=== PATIENT | female | born 1990 | race Caucasian/White ===

== ENCOUNTER 2018-02-11 15:36 | Observation (INO) ==
[2018-02-11] MEDS ORDERED: Acetaminophen 325 MG TABLET PO PRN (17:13)
[2018-02-11] MEDS ORDERED: Naloxone 0.4 MG/ML INJ IVP PRN (17:13)
--- NOTE | 2018-02-11 17:18 | Urology History & Physical ---
Date of Encounter: 02/12/18 Time of Encounter: 18:42 Assessment and Plan (1) Left ureteral stone Current Visit: Yes Status: Acute 27-year-old woman with a left proximal ureteral stone. She has been admitted for pain control. I recommend proceeding with a left ureteroscopy, laser lithotripsy, and stent placement. She was informed of the risks of the procedure including but not limited to bleeding, infection, injury to other structures, need for further procedures, stent irritation, incomplete fragmentation, ureteral perforation, need for nephrostomy tube, need for open repair, risks unforeseen, and the risk of anesthesia. She is willing to proceed. History of Present Illness Chief complaint: Left flank pain HPI: Ms. Kim is a 27 year old female who is seen in the urology clinic today for left flank pain. She has a known history of nephrolithiasis. She began developing left flank pain yesterday. It was severe and radiated to her left groin. She went to [facility]. A CT scan showed evidence of a left proximal ureteral stone. There was evidence of hydronephrosis. In addition there was a left renal stone. She came to the urology clinic today. She was having nausea and severe flank pain. She was then admitted for further care. She denies any fevers or chills. She has a long-standing history of nephrolithiasis and has previously had ureteroscopic stone extraction by Dr. Brandt. Past Med Surg Social Fam HX - Family History Mother Hx Family Genitourinary Disorders: No Medications and Allergies 3 Allergy/AdvReac Type Severity Reaction Status Date / Time No Known Allergies Allergy Verified 02/11/18 19:24 Review of Systems - Constitutional no chills, no fever(s) - EENT Nose, mouth and throat: no dizziness - Cardiovascular no chest pain - Respiratory no dyspnea - Gastrointestinal no nausea, no vomiting - Genitourinary Genitourinary: flank pain, no hematuria - Musculoskeletal no back pain - Integumentary no erythema, no rash - Neurological no weakness - Psychiatric no suicidal ideation - Hematologic/Lymphatic no easy bleeding - Allergic/Immunologic no wheezing Exam - General physical appearance Present: well developed, well nourished, no distress - Eyes Absent: icteric - ENT Present: normal nares - Neck Present: trachea midline - Respiratory Present: normal respiratory effort - Cardiovascular Cardiovascular exam IM: RRR - Abdomen Abdomen: Present: soft - Integumentary Present: no rash - Neurologic Present: normal coordination - Musculoskeletal Present: normal gait Urology Results - Labs 02/11/18 18:58 02/11/18 18:58 All other labs normal. - Imaging CT scan - abdomen: report reviewed, image reviewed CT scan - pelvis: report reviewed, image reviewed
[2018-02-11 19:16] LABS: Basophils # 0.1 K/mcL (0.0-0.2); Basophils % 0.5 %; Eosinophils # 0.1 K/mcL (0.0-0.6); Eosinophils % 1.3 %; Hematocrit 38.3 % (35.3-44.9); Hemoglobin 12.7 g/dL (11.5-15.4); Immature Granulocytes % 0.4 % (0-4); Lymphocytes # 2.6 K/mcL (0.6-4.6); Lymphocytes % 23.7 %; Mean Corpuscular HGB Conc 33.2 g/dL (31.6-35.5); Mean Corpuscular Hemoglobin 29.1 pg (28.0-33.3); Mean Corpuscular Volume 87.8 fL (83.0-100.0); Mean Platelet Volume 10.2 fL (9.4-12.4); Monocytes # 0.7 K/mcL (0.0-1.3); Monocytes % 6.4 %; Neutrophils # 7.3 K/mcL (1.6-8.9); Platelet Count 195 K/mcL (140-400); Red Blood Count 4.36 M/mcL (3.82-4.97); Red Cell Distribution Width 12.9 % (11.5-14.5); Segmented Neutrophils % 67.7 %
[2018-02-11 19:39] LABS: BUN/Creatinine Ratio 12 (6-26); Blood Urea Nitrogen 10 mg/dL (6-20); Calcium 8.6 mg/dL (8.6-10.3); Carbon Dioxide 22 mEq/L (23-29); Chloride 108 mEq/L (98-107); Glucose 120 mg/dL (70-105); Osmolality,Calculated 286 (280-300); Potassium 3.8 mEq/L (3.5-5.1); Sodium 138 mEq/L (136-145); eGFR For African Americans > 60 (> 60); eGFR For Non-African Americans > 60 (> 60)
[2018-02-11] MEDS: OXYCODONE Oral CONC 10 MG/0.5 ML ORAL.SYG SL PRN (19:44)
[2018-02-11] MEDS: Nicotine 21 MG PATCH.TD24 TD SCH (20:30)
[2018-02-11] MEDS: 0.9 % Sodium Chloride 1,000 ML IVC SCH (22:08)
[2018-02-11] MEDS: Ondansetron 4 MG/2 ML VIAL IVP PRN (22:23)
[2018-02-11] MEDS: *HR* OxyCODONE Immed Rel 5 MG TABLET PO PRN (23:03)
[2018-02-12] MEDS: OXYCODONE Oral CONC 10 MG/0.5 ML ORAL.SYG SL PRN ×3 (01:56→14:14)
[2018-02-12] MEDS: 0.9 % Sodium Chloride 1,000 ML IVC SCH ×3 (05:59→21:06)
[2018-02-12] MEDS: Ondansetron 4 MG/2 ML VIAL IVP PRN (06:00)
[2018-02-12] MEDS: *HR* OxyCODONE Immed Rel 5 MG TABLET PO PRN ×2 (06:00→21:05)
--- NOTE | 2018-02-12 07:04 | Urology Progress Note ---
Date of Encounter: 02/12/18 Time of Encounter: 07:03 - Assessment and Plan (1) Left ureteral stone Current Visit: Yes Status: Acute Assessment and plan: 27 year old woman with a proximal left ureteral stone. Plan for left ureteroscopy, laser lithotripsy, and stent placement. Patient is aware of all risks. She is willing to proceed. Progress Note Narrative: Doing okay today. Still with some flank pain. No fevers overnight. Objective Initial Vital Signs Temp Pulse Resp BP Pulse Ox 97.9 F 81 15 106/72 96 02/11/18 18:36 02/11/18 18:36 02/11/18 18:36 02/11/18 18:36 02/11/18 18:36 - General physical appearance Present: well developed, well nourished, no distress - Respiratory Present: normal respiratory effort - Abdomen Present: soft - Labs 02/11/18 18:58 02/11/18 18:58 Diabetes panel 02/11/18 Range/Units 18:58 Sodium 138 (136-145) mEq/L Potassium 3.8 (3.5-5.1) mEq/L Chloride 108 H (98-107) mEq/L Carbon Dioxide 22 L (23-29) mEq/L BUN 10 (6-20) mg/dL Creatinine 0.82 (0.60-1.20) mg/dL Glucose 120 H (70-105) mg/dL Calcium 8.6 (8.6-10.3) mg/dL Calcium panel 02/11/18 Range/Units 18:58 Calcium 8.6 (8.6-10.3) mg/dL Pituitary panel 02/11/18 Range/Units 18:58 Sodium 138 (136-145) mEq/L Potassium 3.8 (3.5-5.1) mEq/L Chloride 108 H (98-107) mEq/L Carbon Dioxide 22 L (23-29) mEq/L BUN 10 (6-20) mg/dL Creatinine 0.82 (0.60-1.20) mg/dL Glucose 120 H (70-105) mg/dL Calcium 8.6 (8.6-10.3) mg/dL Adrenal panel 02/11/18 Range/Units 18:58 Sodium 138 (136-145) mEq/L Potassium 3.8 (3.5-5.1) mEq/L Chloride 108 H (98-107) mEq/L Carbon Dioxide 22 L (23-29) mEq/L BUN 10 (6-20) mg/dL Creatinine 0.82 (0.60-1.20) mg/dL Glucose 120 H (70-105) mg/dL Calcium 8.6 (8.6-10.3) mg/dL Consult Discharge Plan - Plan Referrals: Roma Posada CNP [Primary Care Provider] - Charlie Leonardo MD [Partnered Physician] -
[2018-02-12] MEDS: Nicotine 21 MG PATCH.TD24 TD SCH (09:31)
--- NOTE | 2018-02-12 16:10 | Anesthesia Evaluation PreOp ---
Date of Encounter: 02/12/18 Time of Encounter: 16:08 - Past History Planned Operation: Left Ureteroscopic Stone Extraction Cardiac History: Denies any Significant Hx Pulmonary History: Smoker (8 years) FURNACE COMBINATION ANALYST History: Denies Any Significant HX Other Medical History: Renal (kidney stones), GERD, Other (obesity BMI=45.5, anxiety/depression) Anesthesia History: No Prior Anesthetic Complications, Past Anesthesia Test: Negative (02/11/2018) Alcohol Use: none Drug use: none Medications and Allergies FLUoxetine HCl [Fluoxetine HCl] 40 mg PO DAILY 02/12/18 [History] Ibuprofen [Ibuprofen] 800 mg PO Q8H PRN 02/12/18 [History] Norgestimate-Ethinyl Estradiol [Estarylla 0.25-0.035 mg Tablet] 1 tab PO DAILY 02/12/18 [History] Omeprazole [PriLOSEC] 20 mg PO DAILY 02/12/18 [History] Tamsulosin [Flomax] 0.4 mg PO DAILY 02/12/18 [History] 3 Allergy/AdvReac Type Severity Reaction Status Date / Time No Known Allergies Allergy Verified 02/12/18 07:48 - Meds/Allergy Pre-op Review Medications Reviewed: Yes Allergies Reviewed: Yes Beta Blockers on Current Med List: No Anesthesia Results - Labs 02/11/18 18:58 02/11/18 18:58 Anesthesia Exam Vital Signs/O2 Sat/Glucose, Most Recent Temp Pulse Resp BP Pulse Ox 98.9 F 62 14 114/78 100 02/12/18 14:47 02/12/18 14:47 02/12/18 14:47 02/12/18 14:47 02/12/18 14:47 Blood Glucose* 96 Height: 5'2''/1.57m Weight: 248 lbs/112.76 kg NPO (# of Hours): 8 Pain Scale: 7 (left flank) Pain Scale Used: Numeric (1 - 10) - HEENT Pupil (Motor): EOMI Mallampati: III Teeth: Normal Oral Opening: Greater than 3 - FURNACE COMBINATION ANALYST LOC: Oriented FURNACE COMBINATION ANALYST Motor: Normal RUE, Normal LUE, Normal RLE, Normal LLE, Normal Face FURNACE COMBINATION ANALYST Sensory: Normal: RUE, LUE, RLE, LLE, Face - Cardiac Rhythm: Regular Murmur: None - Pulmonary Breath Sounds: bilateral Clear Respiratory Effort: Symmetrical Anesthesia Assess/Plan ASA Score: 3 Modified [place] Scale for Level of Consciousness: Cooperative, oriented, and tranquil Anesthetic Plan: General Monitoring Plan: Standard Monitors Recovery Plan: PACU
[2018-02-12 16:15] LABS: Bilirubin,Urine Negative (Negative); Blood,Urine Trace (Negative); Clarity,Urine Clear (Clear); Color,Urine Yellow (Yellow); Glucose,Urine (UA) Normal (Normal); Ketones,Urine Negative (Negative); Leukocyte Esterase,Urine Trace (Negative); Nitrite,Urine Negative (Negative); Protein,Urine Negative (Neg-Trace); Specific Gravity,Urine 1.012 (1.010-1.025); Urobilinogen,Urine Normal (Normal)
[2018-02-12 16:18] LABS: Bacteria,Urine None Seen per hpf (None-Few); Hyaline Casts,Urine None Seen per lpf (None-Few); RBC,Urine 0-3 per hpf (0-3); Squamous Epithelial Cell,Urine Many per lpf (None-Few); WBC,Urine 0-3 per hpf (0-3)
[2018-02-12] MEDS ORDERED: *HR* Propofol 200 MG/20 ML VIAL IVP ONE (16:22)
[2018-02-12] MEDS ORDERED: *HR* Midazolam HCl 2 MG/2 ML VIAL ONE (16:22)
[2018-02-12] MEDS ORDERED: *HR* FentaNYL (PF) 100 MCG/2 ML VIAL ONE (16:22)
[2018-02-12] MEDS ORDERED: Lidocaine -MPF 2% 2 ML VIAL ONE (16:22)
[2018-02-12] MEDS ORDERED: Dexamethasone 4 MG/ML VIAL ONE (16:22)
[2018-02-12] MEDS ORDERED: *HR* Succinylcholine 200 MG/10 ML VIAL IVP ONE (16:22)
[2018-02-12] MEDS ORDERED: Lidocaine -MPF 4% 5 ML AMPUL ONE (16:22)
[2018-02-12] MEDS ORDERED: Ondansetron 4 MG/2 ML VIAL ONE (16:22)
[2018-02-12] MEDS ORDERED: ceFAZolin 2,000 MG in 0.9 % Sodium Chloride 100 ML IVPB ONE ×2 (16:32→19:36)
[2018-02-12] MEDS ORDERED: *HR* HYDROmorphone 2 MG TABLET PO PRN (16:51)
[2018-02-12] MEDS ORDERED: Naloxone 0.4 MG/ML INJ IVP PRN (16:51)
[2018-02-12] MEDS ORDERED: *HR* Promethazine 25 MG/ML VIAL IVP PRN (16:51)
[2018-02-12] MEDS ORDERED: *HR* Meperidine 25 MG/ML SYRINGE IVP PRN (16:51)
[2018-02-12] MEDS ORDERED: Ondansetron 4 MG/2 ML VIAL IVP ONE (16:51)
[2018-02-12] MEDS ORDERED: Albuterol 2.5 MG/3 ML NEBULIZER IH ONE (16:51)
[2018-02-12] MEDS ORDERED: Acetaminophen IV 1,000 MG/100 ML INFUS..BTL IVPB ONE (16:51)
[2018-02-12] MEDS ORDERED: *HR* OxyCODONE Immed Rel 5 MG TABLET PO PRN (16:51)
[2018-02-12] MEDS ORDERED: 0.9 % Sodium Chloride 500 ML IVC SCH (17:00)
[2018-02-12] MEDS ORDERED: *HR* PHENYLEPHRINE 1,000 MCG/10 ML SYRINGE IVP ONE (18:09)
--- NOTE | 2018-02-12 18:14 | Operative Note ---
Date of procedure: 02/12/18 Pre-op diagnosis: Left ureteral stone Post-op diagnosis: same Procedure: Left ureteroscopy, laser lithotripsy, basket stone extraction, and stent placement Implants: 6-Barbadian by 24 cm double-J stent Complications: None Anesthesia: RUBI Surgeon: Charlie Leonardo Was there an restaurant assistant manager present: No Estimated blood loss (cc): 1 Specimen: left renal stone Condition: stable Disposition: PACU Procedure in Detail: Indications: Bere is a 27-year-old female who has a history of nephrolithiasis. A CT showed a left proximal ureteral stone. She elected to undergo a left ureteroscopy, laser lithotripsy, and stent placement. She was aware of the risks of the procedure including but not limited to bleeding, infection, injury to other structures, need for further procedures, stent irritation, need for nephrostomy tube, need for open repair, risks otherwise unforeseen, and the risk of anesthesia. She is willing to proceed. Procedure in Detail: After informed consent was obtained the patient was brought back to the operating room and placed in supine position. A time out was performed. General anesthesia was administered and an LMA was placed. She was then placed in the lithotomy position. She was prepped and draped in the usual sterile fashion. Cystoscopy was performed. The anterior urethra was normal. There was no evidence of bladder tumors. The ureteral orifices were in the normal orthotopic position. There was no duplication of the ureteral orifices. The sensor wire was placed in the left ureteral orifice. The wire was then brought up into the kidney under fluoroscopic guidance. The 8/10-Barbadian dilator was then placed. The zip wire was placed. The dilator was removed. I then passed the 11/13 Barbadian ureteral access sheath. The flexible ureteroscope was then advanced into the kidney. The renal pelvis was significantly distended. I aspirated approximately 100 mL out of the kidney. The fluid was fairly bloody. A stone was seen in the renal pelvis. This was moved into the upper pole calyx using the basket. The 200 micron laser fiber was introduced. The stone was fractionated into small pieces. Visualization was becoming difficult secondary to bleeding. I was able to basket the larger stone debris. The ureteroscope was then removed and the pullout ureteroscopy showed a small stone in the ureter which was basket extracted. A 6 Barbadian by 24cm JJ stent was then placed. A good curl was seen in the kidney and the bladder. The dangle string was left intact and will be used through removed the stent at a later date. The patient was then awakened from general anesthesia and brought to recovery room in good condition. All sponge, needle, and instrument counts were correct.
[2018-02-12] MEDS ORDERED: Acetaminophen 325 MG TABLET PO PRN (19:36)
[2018-02-12] MEDS ORDERED: OXYCODONE Oral CONC 10 MG/0.5 ML ORAL.SYG SL PRN (19:36)
[2018-02-12] MEDS ORDERED: Ondansetron 4 MG/2 ML VIAL IVP PRN (19:36)
--- NOTE | 2018-02-12 19:39 | Anesthesia Evaluation Post Op ---
Date of Encounter: 02/12/18 Time of Encounter: 19:39 - Vital Signs Vital Signs: Vital Signs/O2 Sat, Most Current Temp Pulse Resp BP Pulse Ox 98.8 F 64 20 98/70 94 02/12/18 19:14 02/12/18 19:24 02/12/18 19:24 02/12/18 19:24 02/12/18 19:24 - Lungs Lungs: Clear Ascult./Percussion - Airway Airway: Non-obstructed - Cardiovascular Regular Rate - Mental Status Mental Status: Alert & Oriented, Answers Appropriately - Pain Pain Scale: 6 Pain Scale used: Numeric (1 - 10) - Nausea Vomiting Nausea Vomiting: Not Present - Hydration Hydration: Ice chips - Discharge PostOp Status: Transfer Patient to floor
[2018-02-13 03:12] VITALS: BP 110/71
[2018-02-13] MEDS: 0.9 % Sodium Chloride 1,000 ML IVC SCH (05:21)
[2018-02-13] MEDS: *HR* OxyCODONE Immed Rel 5 MG TABLET PO PRN (06:06)
--- NOTE | 2018-02-13 06:55 | Discharge Summary ---
Orders not resulted at time of discharge: Pending orders 02/12/18 17:05 XR KUB [XR] Routine Date of Encounter: 02/13/18 Time of Encounter: 06:54 - Discharge Diagnosis (1) Left ureteral stone Priority: Primary Status: Acute - Hospital Course Hospital course: Ms. Kim is a 27 year old female who presented with left flank pain. She was admitted on 02/11/2018 with a left proximal ureteral stone. On 02/11/2018 she underwent a left ureteroscopy, laser lithotripsy, basket stone extraction, and stent placement. On postoperative day #1 she was doing well. She was discharged home that day. - Time Spent with Patient Total time spent providing and/or coordinating discharge services: Less than 30 minutes Labs on day of discharge: Labs from last 24 hours 02/12/18 02/12/18 15:35 05:29 POC Glucose 119 H Urine Color Yellow Urine Clarity Clear Urine pH 6.0 Ur Specific [place] 1.012 Urine Protein Negative Urine Glucose (UA) Normal Urine Ketones Negative Urine Blood Trace H Urine Nitrite Negative Urine Bilirubin Negative Urine Urobilinogen Normal Ur Leukocyte Esterase Trace H Urine Microscopic RBC 0-3 Urine Microscopic WBC 0-3 Ur Squamous Epith Cells Many H Urine Bacteria None Seen Hyaline Casts None Seen - Impressions ITS Impressions Fluoroscopy 02/12/18 17:05 IMPRESSION: Intraprocedural fluoroscopic spot images as above. See separate procedure report for more information. D/ / Jez Welch MD / Jez Welch MD Interpreting Provider: Jez Welch MD - Discharge Medications Prescriptions: Docusate [Colace] 100 mg PO BID #60 capsule Oxycodone HCl/Acetaminophen [Percocet 5-325 mg Tablet] 1 each PO Q6H PRN 4 Days #15 tablet PRN Reason: Pain Phenazopyridine HCl [Pyridium] 200 mg PO TIDAC #12 tab Home Medications: FLUoxetine HCl [Fluoxetine HCl] 40 mg PO DAILY 02/12/18 [History] Ibuprofen 800 mg PO Q8H PRN 02/12/18 [History] Norgestimate-Ethinyl Estradiol [Estarylla 0.25-0.035 mg Tablet] 1 tab PO DAILY 02/12/18 [History] Omeprazole [PriLOSEC] 20 mg PO DAILY 02/12/18 [History] Tamsulosin [Flomax] 0.4 mg PO DAILY 02/12/18 [History] Docusate [Colace] 100 mg PO BID #60 capsule 02/13/18 [Rx] Oxycodone HCl/Acetaminophen [Percocet 5-325 mg Tablet] 1 each PO Q6H PRN 4 Days #15 tablet 02/13/18 [Rx] Phenazopyridine HCl [Pyridium] 200 mg PO TIDAC #12 tab 02/13/18 [Rx] Allergies/Adverse Reactions: 3 Allergy/AdvReac Type Severity Reaction Status Date / Time No Known Allergies Allergy Verified 02/12/18 07:48 Date of admission: 02/11/18 18:14 Primary care physician: Zita Alcala Discharging clinician: Charlie Leonardo Anticipated date of discharge: 02/13/18 Exam Initial Vital Signs Temp Pulse Resp BP Pulse Ox 97.9 F 81 15 106/72 96 02/11/18 18:36 02/11/18 18:36 02/11/18 18:36 02/11/18 18:36 02/11/18 18:36 - General physical appearance Present: well developed, well nourished, no distress - Eyes Absent: icteric - ENT Present: normal nares - Neck Present: trachea midline - Respiratory Present: normal respiratory effort - Cardiovascular Cardiovascular exam IM: RRR - Abdomen Abdomen: Present: soft - Integumentary Present: no rash - Neurologic Present: normal coordination - Patient Status Disposition: Home, Self-Care Condition: Good Functional capacity at discharge: independent ambulation Overall status at discharge: patient is progressing back to baseline - Discharge Instructions Follow Up With: Roma Posada, MARIAA [Primary Care Provider] - Charlie Leonardo MD [Partnered Physician] - (Patient can see me in [place] next week for string, stent removal.) Additional Instructions: 1. The patient can follow up with me in [place] on 02/18/2018 for string stent removal 2. She should expect to feel flank pain with voiding. 3. The patient should call for any fevers, chills, nausea, emesis, or uncontrolled pain. 4. Please provide a work excuse if necessary for up to 1 week off. - Diet and Activity Activity: increase activity as tolerated Diet: advance to your usual diet - VTE Documentation of Mechanical Device: Intermittent pneumatic compression device
[2018-02-13] MEDS ORDERED: Nicotine 21 MG PATCH.TD24 TD SCH (09:00)
[2018-02-13] MEDS ORDERED: NORGESTIMATE ETHINYL ESTRADIOL PO SCH (09:00)
[2018-02-13] MEDS ORDERED: FLUoxetine 20 MG CAPSULE PO SCH (09:00)
== END 2018-02-13 10:04 | disposition home or self-care (01) ==
LOC: 3ANU 18:14 → INTOOBSV 18:14
PROVIDERS: ADMIT Urology; ATTEND Urology

== ENCOUNTER 2018-09-10 17:28 | Inpatient (IN) ==
[2018-09-10] MEDS ORDERED: Acetaminophen IV 1,000 MG/100 ML INFUS..BTL IVPB ONE (17:52)
[2018-09-10] MEDS ORDERED: Hyoscyamine 0.5 MG/ML MLS IVP ONE (17:52)
[2018-09-10] MEDS ORDERED: *HR* HYDROmorphone (PF) 1 MG/ML SYRINGE IVP ONE (17:52)
[2018-09-10] MEDS ORDERED: 0.9 % Sodium Chloride 1,000 ML IVC ONE (17:52)
--- NOTE | 2018-09-10 17:55 | Emergency Department Note ---
Disposition Clinical Impression: Left ureteral stone UTI (urinary tract infection) Qualifiers: Urinary tract infection type: acute cystitis Hematuria presence: with hematuria Qualified Code(s): N30.01 - Acute cystitis with hematuria Disposition: Admitted As Inpatient Condition: Fair Time of Disposition: 18:39 Abdominal Pain HPI - General Chief Complaint: ED Abdominal Pain Stated Complaint: "kidney stone" Time Seen by Provider: 09/10/18 17:40 Source: patient Mode of arrival: ambulatory Limitations: no limitations Nursing Notes Reviewed: Yes Vital Signs Reviewed: Yes - History of Present Illness HPI Narrative: Patient presents to the ED if the chief complaint of left-sided kidney stone. Has had multiple kidney stones in the past, all requiring stenting or removal. She was seen at outside hospital last night and told that the kidney stone was on her left and was just about to drop into the bladder, but did have the potential to get stuck. They placed her on 2 mg of oral Dilaudid pills and she states that that has not been touching her pain. She also complains of a sub jective fever at home today, but is afebrile here. She does have chills and nausea and vomiting. No other abdominal pain. No chest pain or shortness of breath. She does have some dysuria, frequency and hesitancy. No rashes. Pain Scale: 8 - Related Data Home Medications Medication Instructions Recorded Confirmed FLUoxetine HCl [Fluoxetine HCl] 40 mg PO DAILY 02/12/18 09/10/18 Omeprazole [PriLOSEC] 20 mg PO DAILY 02/12/18 09/10/18 Allergies Allergy/AdvReac Type Severity Reaction Status Date / Time No Known Allergies Allergy Verified 02/12/18 07:48 Review of Systems: As reviewed in the HPI. All other systems reviewed are negative or normal. Abdominal Pain PMH - Past Medical History Medical history: Reports: kidney stones Female Surgical History: Reports: cholecystectomy Psychiatric history: Reports: depression - Social History Smoking status: Current every day smoker Alcohol use: Reports: none Drug use: Reports: none Physical Exam CONSTITUTIONAL: [ill appearing, alert and in no acute distress] EYES: [EOMI, clear conjunctiva, PERRLA] HENT: [Normocephalic, atraumatic, moist mucus membranes, normal oropharynx] NECK: [normal inspection, full ROM, trachea midline, no obvious swelling] PULMONARY: [normal lung sounds bilaterally, normal chest rise and fall, no respiratory distress or stridor, no wheezes, no rales, no rhonchi CARDIOVASCULAR: [regular rate, regular rhythm, normal heart sounds, no murmurs, distal extremities are warm and well perfused] GASTROINSTESTINAL: [soft, LLQ tender, non-rigid, non-distended, no guarding, no rebound, normal bowel sounds] GENITOURINARY/RECTAL: [deferred] NEUROLOGIC: [Alert, oriented x3, normal speech, moves all extremities, L Flank pain] EXTREMITIES: [Normal inspection, full ROM, no tenderness, no pedal edema, normal capillary refill] MUSCULOSKELETAL: [no gross deformities, atraumatic] SKIN: [No cyanosis, no diaphoresis, normal color, warm, no rash] PSYCHIATRIC: [normal mood and affect] - General Limitations: no limitations General appearance: alert, in no apparent distress Course Course Narrative: Patient likely with blocked kidney stone. We will give her meds and reevaluate. Attempting to get imaging from outside hospital. Otherwise, we will reimage We did get CT imaging from the outside hospital. There is a 4.5 mm left UPJ stone. Patient does have significant pain. I consult with urology, Dr. Leonardo. Amendable to admission for pain control and reevaluation in the morning. Patient and family are agreeable with plan. We will recheck labs and I will give her dose of Rocephin because the outside records did show leukocyte esterase and 25-50 white blood cells, but was nitrite negative. However, she does have dysuria and urinary complaints Vital Signs Temperature 99.6 F 09/10/18 17:37 Pulse Rate 117 09/10/18 17:37 Respiratory Rate 20 09/10/18 17:37 Blood Pressure 125/79 09/10/18 17:37 O2 Sat by Pulse Oximetry 97 09/10/18 17:37 Temperature 99.6 F 09/10/18 17:37 Pulse Rate 117 09/10/18 17:37 Respiratory Rate 20 09/10/18 17:37 Blood Pressure 125/79 09/10/18 17:37 O2 Sat by Pulse Oximetry 97 09/10/18 17:37 Oxygen Delivery Oxygen Delivery Room Air Abdominal Pain - Lab Data Result diagrams: 09/12/18 08:06 09/12/18 09:21 Lab Results 09/10/18 09/10/18 Range/Units 17:35 17:35 Urine Color Yellow (Yellow) Urine Clarity Cloudy A (Clear) Urine pH 6.0 (5.0-8.0) pH Units Ur Specific [place] 1.019 (1.010-1.025) Urine Protein 100 H (Neg-Trace) mg/dL Urine Glucose (UA) Normal (Normal) mg/dL Urine Ketones Negative (Negative) mg/dL Urine Blood Large H (Negative) Urine Nitrite Negative (Negative) Urine Bilirubin Negative (Negative) Urine Urobilinogen Normal (Normal) mg/dL Ur Leukocyte Esterase Moderate H (Negative) Urine Microscopic RBC 50-100 H (0-3) per hpf Urine Microscopic WBC TNTC H (0-3) per hpf Ur Squamous Epith Cells Many H (None-Few) per lpf Urine Bacteria Moderate H (None-Few) per hpf Hyaline Casts Few (None-Few) per lpf Ur Culture Indicated? NO. A (NO) Urine Test Negative (Negative)
[2018-09-10 18:04] LABS: Bilirubin,Urine Negative (Negative); Blood,Urine Large (Negative); Clarity,Urine Cloudy (Clear); Color,Urine Yellow (Yellow); Glucose,Urine (UA) Normal (Normal); Ketones,Urine Negative (Negative); Leukocyte Esterase,Urine Moderate (Negative); Nitrite,Urine Negative (Negative); Protein,Urine 100 mg/dL (Neg-Trace); Specific Gravity,Urine 1.019 (1.010-1.025); Urobilinogen,Urine Normal (Normal)
[2018-09-10 18:08] LABS: Bacteria,Urine Moderate per hpf (None-Few); Hyaline Casts,Urine Few per lpf (None-Few); RBC,Urine 50-100 per hpf (0-3); Squamous Epithelial Cell,Urine Many per lpf (None-Few); WBC,Urine TNTC per hpf (0-3)
[2018-09-10] MEDS ORDERED: Ondansetron 4 MG/2 ML VIAL IVP ONE (18:10)
--- NOTE | 2018-09-10 18:30 | Emergency Department Note ---
Disposition Clinical Impression: Left ureteral stone, UTI (urinary tract infection) Disposition: Admitted As Inpatient Condition: Fair General Adult HPI - General Chief complaint: ED Abdominal Pain Stated complaint: "kidney stone" Time Seen by Provider: 09/10/18 17:40 Source: patient Mode of arrival: ambulatory Limitations: no limitations - History of Present Illness Pain Scale: 8 - Related Data Home Medications Medication Instructions Recorded Confirmed FLUoxetine HCl [Fluoxetine HCl] 40 mg PO DAILY 02/12/18 09/10/18 Omeprazole [PriLOSEC] 20 mg PO DAILY 02/12/18 09/10/18 Allergies Allergy/AdvReac Type Severity Reaction Status Date / Time No Known Allergies Allergy Verified 02/12/18 07:48 Past Medical History - Past Medical History Medical history: Reports: kidney stones Surgical history: Reports: cholecystectomy Psychiatric history: Reports: depression - Social History Smoking Status: Current every day smoker Smokeless Tobacco Status: No Alcohol use: Reports: none Drug use: Reports: none Physical Exam - General Limitations: no limitations General appearance: alert, in no apparent distress Course Vital Signs Temperature 99.6 F 09/10/18 17:37 Pulse Rate 117 09/10/18 17:37 Respiratory Rate 20 09/10/18 17:37 Blood Pressure 125/79 09/10/18 17:37 O2 Sat by Pulse Oximetry 97 09/10/18 17:37 Temperature 98.5 F 09/12/18 11:20 Pulse Rate 84 09/12/18 11:20 Respiratory Rate 18 09/12/18 11:20 Blood Pressure 113/76 09/12/18 11:20 O2 Sat by Pulse Oximetry 95 09/12/18 11:20 Oxygen Delivery Oxygen Delivery Room Air Medical Decision Making - Lab Data Result diagrams: 09/12/18 08:06 09/12/18 09:21 Lab Results 09/10/18 09/10/18 09/10/18 Range/Units 17:35 17:35 18:25 WBC 16.2 H (4.3-11.1) K/mcL RBC 4.57 (3.82-4.97) M/mcL Hgb 13.3 (11.5-15.4) g/dL Hct 40.2 (35.3-44.9) % MCV 88.0 (83.0-100.0) fL MCH 29.1 (28.0-33.3) pg MCHC 33.1 (31.6-35.5) g/dL RDW 12.2 (11.5-14.5) % Plt Count 202 (140-400) K/mcL MPV 10.5 (9.4-12.4) fL Immature Gran % 0.3 (0-4) % Seg Neutrophils % 84.3 % Lymphocytes % 9.1 % Monocytes % 6.2 % Eosinophils % 0.0 % Basophils % 0.1 % Neutrophils # 13.7 H (1.6-8.9) K/mcL Lymphocytes # 1.5 (0.6-4.6) K/mcL Monocytes # 1.0 (0.0-1.3) K/mcL Eosinophils # 0.0 (0.0-0.6) K/mcL Basophils # 0.0 (0.0-0.2) K/mcL Sodium (136-145) mEq/L Potassium (3.5-5.1) mEq/L Chloride (98-107) mEq/L Carbon Dioxide (23-29) mEq/L BUN (6-20) mg/dL Creatinine (0.60-1.20) mg/dL Est GFR ( Amer) (> 60) Est GFR (Non-Af Amer) (> 60) BUN/Creatinine Ratio (6-26) Glucose (70-105) mg/dL Calculated Osmolality (280-300) Lactic Acid (0.5-2.2) mmol/L Calcium (8.6-10.3) mg/dL Magnesium (1.6-2.6) mg/dL Urine Color Yellow (Yellow) Urine Clarity Cloudy A (Clear) Urine pH 6.0 (5.0-8.0) pH Units Ur Specific Quentin 1.019 (1.010-1.025) Urine Protein 100 H (Neg-Trace) mg/dL Urine Glucose (UA) Normal (Normal) mg/dL Urine Ketones Negative (Negative) mg/dL Urine Blood Large H (Negative) Urine Nitrite Negative (Negative) Urine Bilirubin Negative (Negative) Urine Urobilinogen Normal (Normal) mg/dL Ur Leukocyte Esterase Moderate H (Negative) Urine Microscopic RBC 50-100 H (0-3) per hpf Urine Microscopic WBC TNTC H (0-3) per hpf Ur Squamous Epith Cells Many H (None-Few) per lpf Urine Bacteria Moderate H (None-Few) per hpf Hyaline Casts Few (None-Few) per lpf Ur Culture Indicated? NO. A (NO) Urine Test Negative (Negative) 09/10/18 09/10/18 09/11/18 Range/Units 18:25 18:25 03:51 WBC 12.9 H (4.3-11.1) K/mcL RBC 4.37 (3.82-4.97) M/mcL Hgb 13.0 (11.5-15.4) g/dL Hct 39.2 (35.3-44.9) % MCV 89.7 (83.0-100.0) fL MCH 29.7 (28.0-33.3) pg MCHC 33.2 (31.6-35.5) g/dL RDW 12.3 (11.5-14.5) % Plt Count 161 (140-400) K/mcL MPV 10.7 (9.4-12.4) fL Immature Gran % 0.4 (0-4) % Seg Neutrophils % 79.7 % Lymphocytes % 10.4 % Monocytes % 9.2 % Eosinophils % 0.1 % Basophils % 0.2 % Neutrophils # 10.3 H (1.6-8.9) K/mcL Lymphocytes # 1.4 (0.6-4.6) K/mcL Monocytes # 1.2 (0.0-1.3) K/mcL Eosinophils # 0.0 (0.0-0.6) K/mcL Basophils # 0.0 (0.0-0.2) K/mcL Sodium 138 (136-145) mEq/L Potassium 3.2 L (3.5-5.1) mEq/L Chloride 104 (98-107) mEq/L Carbon Dioxide 26 (23-29) mEq/L BUN 9 (6-20) mg/dL Creatinine 0.74 (0.60-1.20) mg/dL Est GFR ( Amer) > 60 (> 60) Est GFR (Non-Af Amer) > 60 (> 60) BUN/Creatinine Ratio 12 (6-26) Glucose 116 H (70-105) mg/dL Calculated Osmolality 286 (280-300) Lactic Acid 0.9 (0.5-2.2) mmol/L Calcium 8.7 (8.6-10.3) mg/dL Magnesium (1.6-2.6) mg/dL Urine Color (Yellow) Urine Clarity (Clear) Urine pH (5.0-8.0) pH Units Ur Specific Quentin (1.010-1.025) Urine Protein (Neg-Trace) mg/dL Urine Glucose (UA) (Normal) mg/dL Urine Ketones (Negative) mg/dL Urine Blood (Negative) Urine Nitrite (Negative) Urine Bilirubin (Negative) Urine Urobilinogen (Normal) mg/dL Ur Leukocyte Esterase (Negative) Urine Microscopic RBC (0-3) per hpf Urine Microscopic WBC (0-3) per hpf Ur Squamous Epith Cells (None-Few) per lpf Urine Bacteria (None-Few) per hpf Hyaline Casts (None-Few) per lpf Ur Culture Indicated? (NO) Urine Test (Negative) 09/11/18 Range/Units 03:51 WBC (4.3-11.1) K/mcL RBC (3.82-4.97) M/mcL Hgb (11.5-15.4) g/dL Hct (35.3-44.9) % MCV (83.0-100.0) fL MCH (28.0-33.3) pg MCHC (31.6-35.5) g/dL RDW (11.5-14.5) % Plt Count (140-400) K/mcL MPV (9.4-12.4) fL Immature Gran % (0-4) % Seg Neutrophils % % Lymphocytes % % Monocytes % % Eosinophils % % Basophils % % Neutrophils # (1.6-8.9) K/mcL Lymphocytes # (0.6-4.6) K/mcL Monocytes # (0.0-1.3) K/mcL Eosinophils # (0.0-0.6) K/mcL Basophils # (0.0-0.2) K/mcL Sodium 138 (136-145) mEq/L Potassium 3.4 L (3.5-5.1) mEq/L Chloride 106 (98-107) mEq/L Carbon Dioxide 24 (23-29) mEq/L BUN 9 (6-20) mg/dL Creatinine 0.69 (0.60-1.20) mg/dL Est GFR ( Amer) > 60 (> 60) Est GFR (Non-Af Amer) > 60 (> 60) BUN/Creatinine Ratio 13 (6-26) Glucose 90 (70-105) mg/dL Calculated Osmolality 284 (280-300) Lactic Acid (0.5-2.2) mmol/L Calcium 8.5 L (8.6-10.3) mg/dL Magnesium 1.5 L (1.6-2.6) mg/dL Urine Color (Yellow) Urine Clarity (Clear) Urine pH (5.0-8.0) pH Units Ur Specific Quentin (1.010-1.025) Urine Protein (Neg-Trace) mg/dL Urine Glucose (UA) (Normal) mg/dL Urine Ketones (Negative) mg/dL Urine Blood (Negative) Urine Nitrite (Negative) Urine Bilirubin (Negative) Urine Urobilinogen (Normal) mg/dL Ur Leukocyte Esterase (Negative) Urine Microscopic RBC (0-3) per hpf Urine Microscopic WBC (0-3) per hpf Ur Squamous Epith Cells (None-Few) per lpf Urine Bacteria (None-Few) per hpf Hyaline Casts (None-Few) per lpf Ur Culture Indicated? (NO) Urine Test (Negative) Attestation Statement - Attestation Attestation: I examined this patient and my medical decision-making was reviewed with the Resident Physician. I agree with the documented findings, disposition and treatment plan as described except to the extent set forth below. Patient to the ED with a chief complaint of flank pain. Patient was at [facility] yesterday and diagnosed with a kidney stone. She states she has a history of lithotripsy's. It is intolerable. On exam she has left CVA tenderness with percussion. Abdomen soft. Plan. Reviewed her records from [facility]. She had a 4.5 mm stone at the UPJ. She also had a large amount of leukocytes and white cells. Discuss with urology. Patient will be admitted for pain control. Fluoroscopy 09/11/18 00:00 IMPRESSION: Fluoroscopy was utilized for the purpose of placement of a left ureteral stent D/ / 09/11/2018 09:55:24 Jimmy Gracia MD / [facility] Interpreting Provider: Jimmy Gracia MD X-Ray 09/11/18 00:00 IMPRESSION: Fluoroscopy was utilized for the purpose of placement of a left ureteral stent D/ / 09/11/2018 09:55:24 Jimmy Gracia MD / [facility] Interpreting Provider: Jimmy Gracia MD
[2018-09-10] MEDS ORDERED: cefTRIAXone 1,000 MG in Water for inj. (sterile) 20 ML 10 ML IVP ONE (18:31)
[2018-09-10 18:41] LABS: Basophils % 0.1 %; Hematocrit 40.2 % (35.3-44.9); Hemoglobin 13.3 g/dL (11.5-15.4); Immature Granulocytes % 0.3 % (0-4); Lymphocytes # 1.5 K/mcL (0.6-4.6); Lymphocytes % 9.1 %; Mean Corpuscular HGB Conc 33.1 g/dL (31.6-35.5); Mean Corpuscular Hemoglobin 29.1 pg (28.0-33.3); Mean Platelet Volume 10.5 fL (9.4-12.4); Monocytes % 6.2 %; Neutrophils # 13.7 K/mcL (1.6-8.9); Platelet Count 202 K/mcL (140-400); Red Blood Count 4.57 M/mcL (3.82-4.97); Red Cell Distribution Width 12.2 % (11.5-14.5); Segmented Neutrophils % 84.3 %
[2018-09-10 19:08] LABS: BUN/Creatinine Ratio 12 (6-26); Blood Urea Nitrogen 9 mg/dL (6-20); Calcium 8.7 mg/dL (8.6-10.3); Carbon Dioxide 26 mEq/L (23-29); Chloride 104 mEq/L (98-107); Glucose 116 mg/dL (70-105); Osmolality,Calculated 286 (280-300); Potassium 3.2 mEq/L (3.5-5.1); Sodium 138 mEq/L (136-145); eGFR For Non-African Americans > 60 (> 60)
[2018-09-10] MEDS ORDERED: Naloxone 0.4 MG/ML INJ IVP PRN (20:44)
[2018-09-10] MEDS ORDERED: Acetaminophen 325 MG TABLET PO PRN (20:50)
[2018-09-10] MEDS ORDERED: 0.9 % Sodium Chloride 1,000 ML IVC SCH (21:30)
[2018-09-10] MEDS ORDERED: 0.9 % Sodium Chloride w KCl 40 MEQ/1,000 ML MLS IVC SCH (21:30)
[2018-09-10] MEDS ORDERED: OXYCODONE Oral CONC 10 MG/0.5 ML ORAL.SYG SL PRN (21:31)
--- NOTE | 2018-09-10 21:47 | Internal Med History&Physical ---
<Geovanna,Cecile - Last Filed: 09/11/18 10:52> Date of Encounter: 09/11/18 Time of Encounter: 21:00 Internal Medicine - H&P: HPI Chief complaint: kidney stone Admitted From: Home Plans for Post Hospital Care: Home History of present illness: Ms. Kim is a 27 year old female with PMH of kidney stones and left ureter stent January 2018 who presented to the emergency department with complaints of left-sfided kidney stone and pain. Reports her pain started in lower back on left side and wrapped around to her LLQ. Pain described as clawing and stabbing. Nothing makes the pain worse. She was seen at [facility] earlier this week for left-sided kidney stone, a 4.5mm stone was seen at the left UPJ on CT scan. She was discharged to home with oral pain medication, but has been unable to keep any pain medication down. Day prior to being seen at [place], she developed subjective fever and sweats with nausea, vomiting, and poor PO intake. Admits to burning on urination and difficulty urinating with cloudy, foul-smelling urine. Reports only being able to void small amounts. In the ED she was febrile (100.7 F) and tachycardic but otherwise vital signs were stable. Initial work up significant for WBC 16.2, potassium 3.2, UA findings suggestive of UTI, and lactic acid 0.9. Urology consulted by ED, per ED record Dr. Leonardo would plan to evaluate her in the morning. Renal ultrasound pending at time of admission. Admitted to hospitalist service for further evaluation and management. Past Med Surg Social Fam HX - Past Medical History Medical history: kidney stones Additional medical history: Kidney stone Psychiatric history: depression - Past Surgical History Surgical History: cholecystectomy Additional surgical history: Ureters stents - Social History Smoking Status: Current every day smoker Smokeless Tobacco Status: No Alcohol use: none Drug use: none - Family History Mother Hx Family Genitourinary Disorders: No Internal Medicine - H&P: Meds FLUoxetine HCl [Fluoxetine HCl] 40 mg PO DAILY 02/12/18 [History] Omeprazole [PriLOSEC] 20 mg PO DAILY 02/12/18 [History] Allergy/AdvReac Type Severity Reaction Status Date / Time No Known Allergies Allergy Verified 02/12/18 07:48 All Systems PM: A 10-system review of systems was performed and is negative for pertinent findings except as documented above in the HPI. - Constitutional Constitutional: excessive sweating, fever(s), no chills - Cardiovascular Cardiovascular ROS IM: no chest pain, no dyspnea, no edema - Respiratory Respiratory: no cough, no dyspnea - Gastrointestinal Gastrointestinal: nausea, vomiting, no coffee ground emesis, no diarrhea, no hematemesis - Genitourinary Genitourinary: difficulty urinating, difficulty voiding, dysuria - Musculoskeletal Musculoskeletal ROS IM: back pain - Constitutional Vitals: Temp Pulse Resp BP Pulse Ox 100.7 F H 99 16 101/61 93 09/10/18 20:01 09/10/18 20:01 09/10/18 20:01 09/10/18 20:01 09/10/18 20:01 Exam: General: ill-appearing, moderate distress, pleasant HEENT: normocephalic/atraumatic, no scleral icterus, pupils equal CARDIAC: no murmurs/gallops/rubs, regular rhythm, tachycardic RESPIRATORY: CTAB, no wheezes/rhonchi/rales ABDOMINAL: active bowel sounds, soft, nontender EXTREMITIES: no lower extremity edema, no calf tenderness NEURO: no focal deficits, cooperative, answers questions appropriately, AAO x 3 Internal Med - H&P Results - Labs CBC & Chem 7: 09/11/18 03:51 09/11/18 03:51 Labs: Short CBC 09/10/18 Range/Units 18:25 WBC 16.2 H (4.3-11.1) K/mcL Hgb 13.3 (11.5-15.4) g/dL Hct 40.2 (35.3-44.9) % Plt Count 202 (140-400) K/mcL Neutrophils # 13.7 H (1.6-8.9) K/mcL BMP 09/10/18 18:25 Sodium 138 Potassium 3.2 L Chloride 104 Carbon Dioxide 26 BUN 9 Creatinine 0.74 Glucose 116 H Calcium 8.7 Urine 09/10/18 Range/Units 17:35 Urine Color Yellow (Yellow) Urine Clarity Cloudy A (Clear) Urine pH 6.0 (5.0-8.0) pH Units Ur Specific [place] 1.019 (1.010-1.025) Urine Protein 100 H (Neg-Trace) mg/dL Urine Glucose (UA) Normal (Normal) mg/dL - Assessment and plan (1) Sepsis Current Visit: Yes Status: Acute Assessment and plan: Meets sepsis criteria on admission with: Temp 100.7 F, HR > 90, WBC > 12,000 Etiology: suspect UTI d/t nephrolithiasis Causative organism: Unclear WBC 16.2, no bands Lactic acid 0.9 CT imaging from [facility] reported to show 4.5 mm stone of left UPJ Urinalysis positive for leukocyte esterase, urine WBCs, urine bacteria Received 1 g ceftriaxone IV 1 dose in ED Urine culture pending collection Continue empiric ceftriaxone at this time IV fluid replacement Pain and nausea control Qualifiers: Sepsis type: sepsis due to unspecified organism Qualified Code(s): A41.9 - Sepsis, unspecified organism (2) UTI (urinary tract infection) Current Visit: Yes Status: Acute Assessment and plan: As above Qualifiers: Urinary tract infection type: site unspecified Hematuria presence: with hematuria Qualified Code(s): N39.0 - Urinary tract infection, site not specified; R31.9 - Hematuria, unspecified (3) Left ureteral stone Current Visit: Yes Status: Acute Assessment and plan: CT imaging from [facility] reported to show 4.5 mm stone of left UPJ Urology consulted - Time Spent With Patient Total time spent is greater than 50% in coordination of care (as documented) at patient's floor/unit and/or counseling patient: <Jeff Riley - Last Filed: 09/11/18 19:57> Date of Encounter: 09/11/18 Internal Medicine - H&P: HPI History of present illness: Ms. Kim is a 27 year old female All Systems PM: A 10-system review of systems was performed and is negative for pertinent findings except as documented above in the HPI. - Constitutional Vitals: Temp Pulse Resp BP Pulse Ox 98.4 F 62 16 104/65 94 09/11/18 18:55 09/11/18 18:55 09/11/18 18:55 09/11/18 18:55 09/11/18 18:55 Internal Med - H&P Results - Labs CBC & Chem 7: 09/11/18 03:51 09/11/18 03:51 Labs: Short CBC 09/11/18 Range/Units 03:51 WBC 12.9 H (4.3-11.1) K/mcL Hgb 13.0 (11.5-15.4) g/dL Hct 39.2 (35.3-44.9) % Plt Count 161 (140-400) K/mcL Neutrophils # 10.3 H (1.6-8.9) K/mcL BMP 09/11/18 03:51 Sodium 138 Potassium 3.4 L Chloride 106 Carbon Dioxide 24 BUN 9 Creatinine 0.69 Glucose 90 Calcium 8.5 L - Impressions ITS Impressions Fluoroscopy 09/11/18 00:00 IMPRESSION: Fluoroscopy was utilized for the purpose of placement of a left ureteral stent D/ / 09/11/2018 09:55:24 Jimmy Gracia MD / [facility] Interpreting Provider: Jimmy Gracia MD X-Ray 09/11/18 00:00 IMPRESSION: Fluoroscopy was utilized for the purpose of placement of a left ureteral stent D/ / 09/11/2018 09:55:24 Jimmy Gracia MD / [facility] Interpreting Provider: Jimmy Gracia MD - Time Spent With Patient Total time spent is greater than 50% in coordination of care (as documented) at patient's floor/unit and/or counseling patient: - Attending Attestation I saw and evaluated the patient. I reviewed the residents note, performed my own physical examination and agree with findings and plan as documented in the residents note. Patient seen and examined on 09/10/18. Patient found to have 4.5mm kidney stone. Patient's pain has improved. Has history of kidney stones in the past. Urology consult in the morning.
[2018-09-10] MEDS: OXYCODONE Oral CONC 10 MG/0.5 ML ORAL.SYG SL PRN (21:56)
[2018-09-10] MEDS: Ketorolac 15 MG/ML VIAL IVP PRN (22:23)
[2018-09-10] MEDS ORDERED: Ondansetron 4 MG/2 ML VIAL IVP PRN (23:58)
[2018-09-11] MEDS: OXYCODONE Oral CONC 10 MG/0.5 ML ORAL.SYG SL PRN ×3 (03:53→18:56)
[2018-09-11 05:13] LABS: Basophils % 0.2 %; Eosinophils % 0.1 %; Hematocrit 39.2 % (35.3-44.9); Immature Granulocytes % 0.4 % (0-4); Lymphocytes # 1.4 K/mcL (0.6-4.6); Lymphocytes % 10.4 %; Mean Corpuscular HGB Conc 33.2 g/dL (31.6-35.5); Mean Corpuscular Hemoglobin 29.7 pg (28.0-33.3); Mean Corpuscular Volume 89.7 fL (83.0-100.0); Mean Platelet Volume 10.7 fL (9.4-12.4); Monocytes # 1.2 K/mcL (0.0-1.3); Monocytes % 9.2 %; Neutrophils # 10.3 K/mcL (1.6-8.9); Platelet Count 161 K/mcL (140-400); Red Blood Count 4.37 M/mcL (3.82-4.97); Red Cell Distribution Width 12.3 % (11.5-14.5); Segmented Neutrophils % 79.7 %
[2018-09-11] MEDS: Ketorolac 15 MG/ML VIAL IVP PRN ×2 (05:19→15:51)
[2018-09-11 05:31] LABS: BUN/Creatinine Ratio 13 (6-26); Blood Urea Nitrogen 9 mg/dL (6-20); Calcium 8.5 mg/dL (8.6-10.3); Carbon Dioxide 24 mEq/L (23-29); Chloride 106 mEq/L (98-107); Glucose 90 mg/dL (70-105); Magnesium 1.5 mg/dL (1.6-2.6); Osmolality,Calculated 284 (280-300); Potassium 3.4 mEq/L (3.5-5.1); Sodium 138 mEq/L (136-145); eGFR For Non-African Americans > 60 (> 60)
[2018-09-11] MEDS ORDERED: *HR* Heparin 5,000 UNIT/ML VIAL SQ SCH (06:00)
--- NOTE | 2018-09-11 06:55 | Urology - Consult Note ---
Date of Encounter: 09/11/18 Time of Encounter: 06:53 - Assessment and Plan (1) Left ureteral stone Current Visit: Yes Status: Acute Assessment and plan: 27-year-old woman presents with a 1-2 day history of left flank pain. She has an obstructing left ureteral stone and evidence of infection. I recommend proceeding with a cystoscopy and left ureteral stent placement. She is aware of the risks of the procedure which include but are not limited to bleeding, infection, injury to structures, need for further procedures, need for nephrostomy tube, stent discomfort, risk of anesthesia. She is wiling to proceed. (2) UTI (urinary tract infection) Current Visit: Yes Status: Acute Assessment and plan: Continue IV antibiotic today. Qualifiers: Urinary tract infection type: site unspecified Hematuria presence: with hematuria Qualified Code(s): N39.0 - Urinary tract infection, site not specified; R31.9 - Hematuria, unspecified Urology CN:HPI Consult date: 09/11/18 Reason for consult Urology: Other (Left ureteral stone) History of present illness: 27-year-old woman who is well-known to the urology service presents with left flank pain and fevers. She was seen at an outside hospital and had a CT scan. Per hospital records she had a 4 mm left UPJ stone. She was seen at [facility] and was discharged home. She developed fevers yesterday and the pain was severe. Since the pain persisted even after her emergency room visit, she came to [facility]. She was admitted for pain medication. Overnight she did temperature to 102 degrees. She is hemodynamically stable. She most recently had a left ureteroscopy with laser lithotripsy on 02/12/2018. Past Med Surg Social Fam HX - Past Medical History Medical history: kidney stones Additional medical history: Kidney stone Psychiatric history: depression - Past Surgical History Surgical History: cholecystectomy Additional surgical history: Ureters stents - Social History Smoking Status: Current every day smoker Smokeless Tobacco Status: No Alcohol use: none Drug use: none - Family History Mother Hx Family Genitourinary Disorders: No Medications and Allergies FLUoxetine HCl [Fluoxetine HCl] 40 mg PO DAILY 02/12/18 [History] Omeprazole [PriLOSEC] 20 mg PO DAILY 02/12/18 [History] Allergy/AdvReac Type Severity Reaction Status Date / Time No Known Allergies Allergy Verified 02/12/18 07:48 Review of Systems - Constitutional chills, fever(s) - EENT Nose, mouth and throat: no dizziness - Cardiovascular no chest pain - Respiratory no dyspnea - Gastrointestinal nausea, vomiting - Genitourinary Genitourinary: flank pain, no hematuria - Musculoskeletal no back pain - Integumentary no erythema, no rash - Neurological no weakness - Psychiatric no suicidal ideation - Hematologic/Lymphatic no easy bleeding - Allergic/Immunologic no wheezing Exam Initial Vital Signs Temp Pulse Resp BP Pulse Ox 99.6 F 117 20 125/79 97 09/10/18 17:37 09/10/18 17:37 09/10/18 17:37 09/10/18 17:37 09/10/18 17:37 - General physical appearance Present: well developed, well nourished, no distress - Eyes Absent: icteric - ENT Present: normal nares - Neck Present: trachea midline - Respiratory Present: normal respiratory effort - Cardiovascular Cardiovascular exam IM: RRR - Abdomen Abdomen: Present: soft, tender (Left lower quadrant tenderness) - Integumentary Present: no rash - Neurologic Present: normal coordination - Musculoskeletal Present: other (Grossly normal) Urology Results - Labs 09/11/18 03:51 09/11/18 03:51 Abnormal lab results WBC 12.9 K/mcL (4.3-11.1) H 09/11/18 03:51 Neutrophils # 10.3 K/mcL (1.6-8.9) H 09/11/18 03:51 Potassium 3.4 mEq/L (3.5-5.1) L 09/11/18 03:51 Calcium 8.5 mg/dL (8.6-10.3) L 09/11/18 03:51 Magnesium 1.5 mg/dL (1.6-2.6) L 09/11/18 03:51 Urine Clarity Cloudy (Clear) A 09/10/18 17:35 Urine Protein 100 mg/dL (Neg-Trace) H 09/10/18 17:35 Urine Blood Large (Negative) H 09/10/18 17:35 Ur Leukocyte Esterase Moderate (Negative) H 09/10/18 17:35 Urine Microscopic RBC 50-100 per hpf (0-3) H 09/10/18 17:35 Urine Microscopic WBC TNTC per hpf (0-3) H 09/10/18 17:35 Ur Squamous Epith Cells Many per lpf (None-Few) H 09/10/18 17:35 Urine Bacteria Moderate per hpf (None-Few) H 09/10/18 17:35 Ur Culture Indicated? NO. (NO) A 09/10/18 17:35 Diabetes panel 09/10/18 09/11/18 Range/Units 18:25 03:51 Sodium 138 138 (136-145) mEq/L Potassium 3.2 L 3.4 L (3.5-5.1) mEq/L Chloride 104 106 (98-107) mEq/L Carbon Dioxide 26 24 (23-29) mEq/L BUN 9 9 (6-20) mg/dL Creatinine 0.74 0.69 (0.60-1.20) mg/dL Glucose 116 H 90 (70-105) mg/dL Calcium 8.7 8.5 L (8.6-10.3) mg/dL Calcium panel 09/10/18 09/11/18 Range/Units 18:25 03:51 Calcium 8.7 8.5 L (8.6-10.3) mg/dL Pituitary panel 09/10/18 09/11/18 Range/Units 18:25 03:51 Sodium 138 138 (136-145) mEq/L Potassium 3.2 L 3.4 L (3.5-5.1) mEq/L Chloride 104 106 (98-107) mEq/L Carbon Dioxide 26 24 (23-29) mEq/L BUN 9 9 (6-20) mg/dL Creatinine 0.74 0.69 (0.60-1.20) mg/dL Glucose 116 H 90 (70-105) mg/dL Calcium 8.7 8.5 L (8.6-10.3) mg/dL Adrenal panel 09/10/18 09/11/18 Range/Units 18:25 03:51 Sodium 138 138 (136-145) mEq/L Potassium 3.2 L 3.4 L (3.5-5.1) mEq/L Chloride 104 106 (98-107) mEq/L Carbon Dioxide 26 24 (23-29) mEq/L BUN 9 9 (6-20) mg/dL Creatinine 0.74 0.69 (0.60-1.20) mg/dL Glucose 116 H 90 (70-105) mg/dL Calcium 8.7 8.5 L (8.6-10.3) mg/dL All other labs normal. - Imaging CT scan - abdomen: report reviewed CT scan - pelvis: report reviewed Consult Discharge Plan - Plan Referrals: Roma Posada, MARIAA [Primary Care Provider] -
[2018-09-11] MEDS ORDERED: *HR* Midazolam HCl 2 MG/2 ML VIAL ONE (08:22)
[2018-09-11] MEDS ORDERED: Isovue-300 50 ML VIAL IVP ONE (08:22)
[2018-09-11] MEDS ORDERED: *HR* FentaNYL (PF) 100 MCG/2 ML VIAL ONE (08:22)
[2018-09-11] MEDS ORDERED: *HR* Propofol 200 MG/20 ML VIAL IVP ONE (08:22)
[2018-09-11] MEDS ORDERED: Lidocaine -MPF 2% 2 ML VIAL ONE (08:24)
[2018-09-11] MEDS ORDERED: Ondansetron 4 MG/2 ML VIAL ONE (08:24)
[2018-09-11] MEDS ORDERED: Dexamethasone 4 MG/ML VIAL ONE (08:24)
--- NOTE | 2018-09-11 08:47 | Anesthesia Evaluation PreOp ---
Date of Encounter: 09/11/18 Time of Encounter: 08:45 - Past History Planned Operation: Cysto/ L-stent Cardiac History: Denies any Significant Hx Pulmonary History: Smoker ORTHOPEDIC NURSE PRACTITIONER History: Other (Anxiety/Depression) Other Medical History: Renal (kidney stonese) Anesthesia History: Past Anesthesia (Jill, Ureteral stents) : No Test: Negative Alcohol Use: none Drug use: none Medications and Allergies FLUoxetine HCl [Fluoxetine HCl] 40 mg PO DAILY 02/12/18 [History] Omeprazole [PriLOSEC] 20 mg PO DAILY 02/12/18 [History] Allergy/AdvReac Type Severity Reaction Status Date / Time No Known Allergies Allergy Verified 02/12/18 07:48 - Meds/Allergy Pre-op Review Medications Reviewed: Yes Allergies Reviewed: Yes Beta Blockers on Current Med List: No Anesthesia Results - Labs 09/11/18 03:51 09/11/18 03:51 Laboratory Results Anesthesia Exam Vital Signs Temp Pulse Resp BP Pulse Ox 09/11/18 06:47 99.1 F 82 16 95/62 97 09/11/18 04:32 102.1 F H 88 15 101/61 92 09/10/18 23:57 98.4 F 69 14 96/61 93 09/10/18 20:01 100.7 F H 99 16 101/61 93 09/10/18 19:42 96 20 98 09/10/18 17:37 99.6 F 117 20 125/79 97 Intake and Output 09/10/18 09/11/18 09/11/18 23:59 07:59 15:59 Intake Total 0 / 0 1000 / 1000 Output Total 300 / 300 250 / 250 Balance -300 / -300 750 / 750 Intake: IV Fluids 1000 / 1000 KCl 40mEq in 0.9% Sodium 1000 / 1000 Chloride 40 meq In 1,000 ml @ 125 mls/hr IVC .Q8H EDDI Rx#: [id number] Oral 0 / 0 0 / 0 Output: Urine 300 / 300 250 / 250 Other: # Voids 1 # Urine Diapers 1 # Bowel Movements 0 Weight 99.2 kg 99.2 kg Patient Weight 09/11/18 23:59 Weight 99.2 kg Height: 5'2" Weight: 218# BMI = 40 NPO (# of Hours): MNoc - HEENT Pupil (Motor): Pupils equal, EOMI Mallampati: II Teeth: Normal Oral Opening: Greater than 3 - ORTHOPEDIC NURSE PRACTITIONER LOC: Oriented ORTHOPEDIC NURSE PRACTITIONER Motor: Normal RUE, Normal LUE, Normal RLE, Normal LLE, Normal Face ORTHOPEDIC NURSE PRACTITIONER Sensory: Normal: RUE, LUE, RLE, LLE, Face - Cardiac Rhythm: Regular Murmur: None - Pulmonary Breath Sounds: bilateral Clear Respiratory Effort: Symmetrical Anesthesia Assess/Plan ASA Score: 3 (MO/BMI = 40, Smoker, Anxiety/Depression) Level of consciousness: Cooperative, Oriented, Tranquil Anesthetic Plan: General Monitoring Plan: Standard Monitors Recovery Plan: PACU Anes Supervising Prov Stmt: Pt seen/evaluated, R&B Discussed, questions answered and consent obtained. Amanda Abdullahi MD
[2018-09-11] MEDS ORDERED: cefTRIAXone 1,000 MG in Water for inj. (sterile) 20 ML 10 ML IVP SCH (09:00)
[2018-09-11] MEDS ORDERED: Acetaminophen IV 1,000 MG/100 ML INFUS..BTL ONE (09:02)
[2018-09-11] MEDS ORDERED: Famotidine 20 MG/2 ML VIAL ONE (09:02)
--- NOTE | 2018-09-11 09:32 | Operative Note ---
Date of procedure: 09/11/18 Pre-op diagnosis: Left ureteral stone Post-op diagnosis: same Procedure: Cystoscopy, left ureteral stent placement Implants: 6-[place] by 24 cm double-J stent Complications: None Anesthesia: GETA Surgeon: Charlie Leonardo Was there an assistant art director present: No Estimated blood loss (cc): 0 Specimen: left renal aspirate for culture Condition: stable Disposition: PACU Procedure in Detail: Indications: Bere is a 27-year-old woman who has a history of nephrolithiasis. She had a CT which showed a left ureteral stone. She developed a UTI and fever. She elected to undergo a cystoscopy and left ureteral stent placement. She was aware of the risks of the procedure including but not limited to bleeding, infection, injury to other structures, need for further procedures, stent irritation, need for n ephrostomy tube, need for open repair, risks otherwise unforeseen, and the risk of anesthesia. She is willing to proceed. Procedure in Detail: After informed consent was obtained the patient was brought back to the operating room and placed in supine position. A time out was performed. General anesthesia was administered and a LMA was placed. She was then placed in the lithotomy position. She was prepped and draped in the usual sterile fashion. Cystoscopy was performed. The anterior urethra was normal. There was no evidence of bladder tumors. The ureteral orifices were in the normal orthotopic position. There was no duplication of the ureteral orifices. The sensor wire was placed in the left ureteral orifice. The open-ended catheter was placed over the wire into the distal ureter. The wire was brought into the kidney under fluoroscopic guidance. The open-ended catheter was brought into the kidney as well. An aspirate of urine was obtained. The urine was fairly clear, but there was a hydronephrotic drip. The wire was replaced. A 6 [place] by 24cm JJ stent was then placed. The dangle strings were removed. A Mantilla catheter was placed. The patient was then awakened from general anesthesia and brought to recovery room in good condition. All sponge, needle, and instrument counts were correct.
[2018-09-11] MEDS ORDERED: Ringers Solution, Lactated 1,000 ML ONE (09:47)
[2018-09-11] MEDS ORDERED: Naloxone 0.4 MG/ML INJ IVP PRN (10:21)
--- NOTE | 2018-09-11 10:25 | Anesthesia Evaluation Post Op ---
Date of Encounter: 09/11/18 Time of Encounter: 10:15 - Vital Signs Vital Signs: Vital Signs/O2 Sat/Glucose, Most Current Temp Pulse Resp BP Pulse Ox 09/11/18 10:13 98.0 F 78 16 94/54 98 09/11/18 10:03 98.1 F 78 16 94/54 98 09/11/18 09:53 80 16 96/63 98 09/11/18 09:43 82 20 86/51 98 09/11/18 09:33 98.6 F 76 24 84/43 100 09/11/18 06:47 99.1 F 82 16 95/62 97 - Lungs Lungs: Clear Ascult./Percussion - Airway Airway: Non-obstructed - Cardiovascular Regular Rate - Mental Status Mental Status: Alert & Oriented, Answers Appropriately - Pain Pain Scale: 1 Pain Scale used: Lozada-Caldwell (Faces) - Nausea Vomiting Nausea Vomiting: Not Present - Hydration Hydration: Ice chips, Mantilla catheter - Discharge PostOp Status: Transfer Patient to floor Anes Supervising Prov Stmt: Pt seen/evaluated, VSS and has met criteria for discharge to floor. - MD Kaylen
[2018-09-11] MEDS: 0.9 % Sodium Chloride w KCl 40 MEQ/1,000 ML MLS IVC SCH ×2 (11:11→16:53)
--- NOTE | 2018-09-11 15:34 | Event Note ---
Date of Encounter: 09/11/18 Time of Encounter: 15:33 Patient underwent cystoscopy and left ureteral stent placement today. Doing well postprocedure. WBC count is trending down today. Continue ceftriaxone. Replace potassium. Follow urology recommendations.
[2018-09-11] MEDS: Nicotine 21 MG PATCH.TD24 TD SCH (15:45)
[2018-09-11] MEDS: Ondansetron 4 MG/2 ML VIAL IVP PRN (15:45)
--- NOTE | 2018-09-11 15:59 | Urology Progress Note ---
Date of Encounter: 09/11/18 Time of Encounter: 15:57 - Assessment and Plan (1) Left ureteral stone Current Visit: Yes Status: Acute Assessment and plan: Patient is a 27-year-old female who presents with a history of a left ureteral stone and urinary tract infection. Patient is just status post cystoscopy, left ureteral stent placement earlier today. Patient is recovering well and has no new concerns. Vital signs are currently stable and afebrile. (2) UTI (urinary tract infection) Current Visit: Yes Status: Acute Assessment and plan: Patient is a 27-year-old female who presents with a left ureteral stone and urinary tract infection. Postoperatively, vital signs have been stable and afebrile. Patient is receiving IV Rocephin. Urine culture pending. Qualifiers: Urinary tract infection type: site unspecified Hematuria presence: with hematuria Qualified Code(s): N39.0 - Urinary tract infection, site not specified; R31.9 - Hematuria, unspecified Progress Note Narrative: POD #0. Patient seen and examined lying in bed in no apparent distress. Patient reports some left flank discomfort and slight nausea. Patient has received IV Toradol and Zofran and is feeling better. Mantilla catheter is indwelling and draining clear urine into bedside bag. Objective Initial Vital Signs Temp Pulse Resp BP Pulse Ox 99.6 F 117 20 125/79 97 09/10/18 17:37 09/10/18 17:37 09/10/18 17:37 09/10/18 17:37 09/10/18 17:37 - General physical appearance Present: well developed, no distress, moderate pain - Respiratory Present: normal expansion, normal respiratory effort - Abdomen Present: soft, tender (left cvat ) - Genitourinary Urine Appearance: Present: Clear. Absent: Sediment, Purulent, Hematuria, Small Blood Clots, Stones/Calculi - Integumentary Present: no rash, no abnormal pigmentation - Musculoskeletal Present: normal posture - Psychiatric Present: oriented to time, oriented to person, oriented to place, speech is normal, memory intact - Labs 09/11/18 03:51 09/11/18 03:51 Diabetes panel 09/10/18 09/11/18 Range/Units 18:25 03:51 Sodium 138 138 (136-145) mEq/L Potassium 3.2 L 3.4 L (3.5-5.1) mEq/L Chloride 104 106 (98-107) mEq/L Carbon Dioxide 26 24 (23-29) mEq/L BUN 9 9 (6-20) mg/dL Creatinine 0.74 0.69 (0.60-1.20) mg/dL Glucose 116 H 90 (70-105) mg/dL Calcium 8.7 8.5 L (8.6-10.3) mg/dL Calcium panel 09/10/18 09/11/18 Range/Units 18:25 03:51 Calcium 8.7 8.5 L (8.6-10.3) mg/dL Pituitary panel 09/10/18 09/11/18 Range/Units 18:25 03:51 Sodium 138 138 (136-145) mEq/L Potassium 3.2 L 3.4 L (3.5-5.1) mEq/L Chloride 104 106 (98-107) mEq/L Carbon Dioxide 26 24 (23-29) mEq/L BUN 9 9 (6-20) mg/dL Creatinine 0.74 0.69 (0.60-1.20) mg/dL Glucose 116 H 90 (70-105) mg/dL Calcium 8.7 8.5 L (8.6-10.3) mg/dL Adrenal panel 09/10/18 09/11/18 Range/Units 18:25 03:51 Sodium 138 138 (136-145) mEq/L Potassium 3.2 L 3.4 L (3.5-5.1) mEq/L Chloride 104 106 (98-107) mEq/L Carbon Dioxide 26 24 (23-29) mEq/L BUN 9 9 (6-20) mg/dL Creatinine 0.74 0.69 (0.60-1.20) mg/dL Glucose 116 H 90 (70-105) mg/dL Calcium 8.7 8.5 L (8.6-10.3) mg/dL Consult Discharge Plan - Plan Referrals: Roma Posada, MARIAA [Primary Care Provider] -
[2018-09-11] MEDS: *HR* Heparin 5,000 UNIT/ML VIAL SQ SCH (16:53)
[2018-09-11] MEDS ORDERED: *HR* LORazepam 2 MG/ML VIAL IVP ONE (22:48)
[2018-09-12] MEDS: OXYCODONE Oral CONC 10 MG/0.5 ML ORAL.SYG SL PRN ×5 (00:27→23:15)
[2018-09-12] MEDS ORDERED: *HR* LORazepam 2 MG/ML VIAL IVP ONE (00:29)
[2018-09-12] MEDS: Acetaminophen 325 MG TABLET PO PRN ×2 (01:38→19:58)
[2018-09-12] MEDS: 0.9 % Sodium Chloride w KCl 40 MEQ/1,000 ML MLS IVC SCH ×3 (01:40→19:58)
[2018-09-12] MEDS: *HR* Heparin 5,000 UNIT/ML VIAL SQ SCH ×2 (08:03→17:45)
[2018-09-12 08:33] LABS: Basophils % 0.1 %; Eosinophils % 0.1 %; Hematocrit 38.3 % (35.3-44.9); Hemoglobin 12.5 g/dL (11.5-15.4); Immature Granulocytes % 0.7 % (0-4); Lymphocytes # 1.5 K/mcL (0.6-4.6); Lymphocytes % 10.7 %; Mean Corpuscular HGB Conc 32.6 g/dL (31.6-35.5); Mean Corpuscular Volume 91.8 fL (83.0-100.0); Mean Platelet Volume 10.9 fL (9.4-12.4); Monocytes # 0.9 K/mcL (0.0-1.3); Monocytes % 6.5 %; Neutrophils # 11.3 K/mcL (1.6-8.9); Platelet Count 179 K/mcL (140-400); Red Blood Count 4.17 M/mcL (3.82-4.97); Red Cell Distribution Width 12.3 % (11.5-14.5); Segmented Neutrophils % 81.9 %
--- NOTE | 2018-09-12 09:00 | Urology Progress Note ---
Date of Encounter: 09/12/18 Time of Encounter: 08:59 - Assessment and Plan (1) Left ureteral stone Current Visit: Yes Status: Acute Assessment and plan: Postoperative day #1 status post cystoscopy and left ureteral stent placement. She is doing better today. 1. DC Knight today. 2. Await results of urine culture. 3. Continue IV antibiotic. 4. Appreciate hospitalist support. (2) UTI (urinary tract infection) Current Visit: Yes Status: Acute Qualifiers: Urinary tract infection type: site unspecified Hematuria presence: with hematuria Qualified Code(s): N39.0 - Urinary tract infection, site not specified; R31.9 - Hematuria, unspecified Progress Note Narrative: Postop day #1 status post cystoscopy and left ureteral stent placement. She is doing better today. Pain is adequately controlled. No fevers overnight. Objective Initial Vital Signs Temp Pulse Resp BP Pulse Ox 99.6 F 117 20 125/79 97 09/10/18 17:37 09/10/18 17:37 09/10/18 17:37 09/10/18 17:37 09/10/18 17:37 - General physical appearance Present: well developed, well nourished, no distress - Respiratory Present: normal respiratory effort - Abdomen Present: soft - Genitourinary Urine Appearance: Present: Hematuria (Light pink in knight) - Labs 09/12/18 08:06 09/11/18 03:51 Consult Discharge Plan - Plan Referrals: Roma Posada, [employer] [Primary Care Provider] -
[2018-09-12 09:51] LABS: BUN/Creatinine Ratio 14 (6-26); Blood Urea Nitrogen 8 mg/dL (6-20); Calcium 8.9 mg/dL (8.6-10.3); Carbon Dioxide 28 mEq/L (23-29); Chloride 111 mEq/L (98-107); Glucose 100 mg/dL (70-105); Osmolality,Calculated 294 (280-300); Potassium 4.2 mEq/L (3.5-5.1); Sodium 143 mEq/L (136-145); eGFR For Non-African Americans > 60 (> 60)
[2018-09-12] MEDS: cefTRIAXone 1,000 MG in Water for inj. (sterile) 20 ML 10 ML IVP SCH (09:51)
[2018-09-12] MEDS: Nicotine 21 MG PATCH.TD24 TD SCH (09:52)
--- NOTE | 2018-09-12 11:49 | Internal Med Progress Note ---
Hospitalist Progress Note - Encounter Date of Encounter: 09/12/18 Time of Encounter: 09:20 - Subjective Interval History: Patient is feeling better today. Nausea has improved. Left groin/flank pain has also improved. No fever or chills reported overnight. - Exam Vitals: Temp Pulse Resp BP Pulse Ox 98.5 F 84 18 113/76 95 09/12/18 11:20 09/12/18 11:20 09/12/18 11:20 09/12/18 11:20 09/12/18 11:20 Exam: General: Patient is alert, no acute distress, oriented x 3, obese Respiratory: Good respiratory effort. Normal breath sounds. No wheezing or crackles. Cardiovascular: Regular rate and rhythm. s1 and s2 normal No clicks, rubs, gallops, or murmurs. No pedal edema Abdomen: Abdomen is soft, nontender. Bowel sounds are present Musculoskeletal: Spontaneously moving all extremities Skin: warm, dry, intact. - Assessment and Plan (1) Sepsis Current Visit: Yes Status: Suspected Assessment and Plan: Due to left renal stone. Awaiting urine culture results. Sepsis resolving. Continue current antibiotic. WBC count slightly worse today. Likely due to procedure done yesterday. We will continue to follow. (2) Left ureteral stone Current Visit: Yes Status: Acute Assessment and Plan: Status post cystoscopy and left ureteral stent placement. Urology following. Continue antibiotic. (3) UTI (urinary tract infection) Current Visit: Yes Status: Acute Assessment and Plan: Due to left ureteral stone. Awaiting final culture results. Patient underwent cystoscopy and stent placement yesterday. Doing well postprocedure. - Time Spent with Patient Total time spent is greater than 50% in coordination of care (as documented) at patient's floor/unit and/or counseling patient: Internal Medicine: Result - Labs CBC & Chem 7: 09/12/18 08:06 09/12/18 09:21 Labs: Short CBC 09/12/18 Range/Units 08:06 WBC 13.8 H (4.3-11.1) K/mcL Hgb 12.5 (11.5-15.4) g/dL Hct 38.3 (35.3-44.9) % Plt Count 179 (140-400) K/mcL Neutrophils # 11.3 H (1.6-8.9) K/mcL BMP 09/12/18 09:21 Sodium 143 Potassium 4.2 Chloride 111 H Carbon Dioxide 28 BUN 8 Creatinine 0.57 L Glucose 100 Calcium 8.9 Consult Discharge Plan - Plan Referrals: Roma Posada, [employer]IST [Primary Care Provider] - (1) Sepsis Qualifiers: Sepsis type: Escherichia coli Qualified Code(s): A41.51 - Sepsis due to Escherichia coli [E. coli] (3) UTI (urinary tract infection) Qualifiers: Urinary tract infection type: acute cystitis Hematuria presence: with hematuria Qualified Code(s): N30.01 - Acute cystitis with hematuria
[2018-09-12] MEDS: Ondansetron 4 MG/2 ML VIAL IVP PRN (12:17)
[2018-09-12] MEDS: Ketorolac 15 MG/ML VIAL IVP PRN ×2 (12:18→21:45)
[2018-09-12] MEDS ORDERED: diazePAM 2 MG TABLET PO ONE (21:42)
[2018-09-13] MEDS: OXYCODONE Oral CONC 10 MG/0.5 ML ORAL.SYG SL PRN ×5 (04:18→23:49)
[2018-09-13] MEDS: Ondansetron 4 MG/2 ML VIAL IVP PRN ×4 (04:18→23:48)
[2018-09-13] MEDS: *HR* Heparin 5,000 UNIT/ML VIAL SQ SCH ×2 (06:06→17:02)
[2018-09-13] MEDS: cefTRIAXone 1,000 MG in Water for inj. (sterile) 20 ML 10 ML IVP SCH (08:31)
[2018-09-13] MEDS: Nicotine 21 MG PATCH.TD24 TD SCH (08:32)
[2018-09-13 09:30] LABS: Basophils % 0.3 %; Eosinophils # 0.2 K/mcL (0.0-0.6); Hematocrit 38.2 % (35.3-44.9); Hemoglobin 12.7 g/dL (11.5-15.4); Immature Granulocytes % 0.4 % (0-4); Lymphocytes # 1.9 K/mcL (0.6-4.6); Lymphocytes % 18.9 %; Mean Corpuscular HGB Conc 33.2 g/dL (31.6-35.5); Mean Corpuscular Hemoglobin 29.6 pg (28.0-33.3); Mean Platelet Volume 10.9 fL (9.4-12.4); Monocytes # 1.1 K/mcL (0.0-1.3); Monocytes % 10.9 %; Neutrophils # 6.9 K/mcL (1.6-8.9); Platelet Count 193 K/mcL (140-400); Red Blood Count 4.29 M/mcL (3.82-4.97); Red Cell Distribution Width 12.3 % (11.5-14.5); Segmented Neutrophils % 67.5 %
--- NOTE | 2018-09-13 09:36 | Urology Progress Note ---
Date of Encounter: 09/13/18 Time of Encounter: 09:35 - Assessment and Plan (1) Left ureteral stone Current Visit: Yes Status: Acute Assessment and plan: Postoperative day #2 status post cystoscopy and left renal stent placement. Culture from ureter is growing out. I recommend that she remain in the hospital until the culture is finalized to confirm appropriate antibiotics. Appreciate hospitalist support. Urology will follow along. Continue IV antibiotic. (2) UTI (urinary tract infection) Current Visit: Yes Status: Acute Qualifiers: Urinary tract infection type: acute cystitis Hematuria presence: with hematuria Qualified Code(s): N30.01 - Acute cystitis with hematuria Progress Note Narrative: Postoperative day #2 status post cystoscopy and left ureteral stent placement. She had a low-grade temperature. I called the lab today. Culture from her ureter has light growth and they will work on speciation of it once there was adequate growth. She says she feels okay today. Objective Initial Vital Signs Temp Pulse Resp BP Pulse Ox 99.6 F 117 20 125/79 97 09/10/18 17:37 09/10/18 17:37 09/10/18 17:37 09/10/18 17:37 09/10/18 17:37 - General physical appearance Present: well developed, well nourished, no distress - Respiratory Present: normal respiratory effort - Abdomen Present: soft - Labs 09/13/18 08:56 09/12/18 09:21 Diabetes panel 09/12/18 Range/Units 09:21 Sodium 143 (136-145) mEq/L Potassium 4.2 (3.5-5.1) mEq/L Chloride 111 H (98-107) mEq/L Carbon Dioxide 28 (23-29) mEq/L BUN 8 (6-20) mg/dL Creatinine 0.57 L (0.60-1.20) mg/dL Glucose 100 (70-105) mg/dL Calcium 8.9 (8.6-10.3) mg/dL Calcium panel 09/12/18 Range/Units 09:21 Calcium 8.9 (8.6-10.3) mg/dL Pituitary panel 09/12/18 Range/Units 09:21 Sodium 143 (136-145) mEq/L Potassium 4.2 (3.5-5.1) mEq/L Chloride 111 H (98-107) mEq/L Carbon Dioxide 28 (23-29) mEq/L BUN 8 (6-20) mg/dL Creatinine 0.57 L (0.60-1.20) mg/dL Glucose 100 (70-105) mg/dL Calcium 8.9 (8.6-10.3) mg/dL Adrenal panel 09/12/18 Range/Units 09:21 Sodium 143 (136-145) mEq/L Potassium 4.2 (3.5-5.1) mEq/L Chloride 111 H (98-107) mEq/L Carbon Dioxide 28 (23-29) mEq/L BUN 8 (6-20) mg/dL Creatinine 0.57 L (0.60-1.20) mg/dL Glucose 100 (70-105) mg/dL Calcium 8.9 (8.6-10.3) mg/dL Consult Discharge Plan - Plan Referrals: Roma Posada, CLOTH[employer] SHAKER [Primary Care Provider] -
[2018-09-13] MEDS: 0.9 % Sodium Chloride w KCl 40 MEQ/1,000 ML MLS IVC SCH ×2 (10:27→15:15)
[2018-09-13] MEDS: Ketorolac 15 MG/ML VIAL IVP PRN (15:18)
--- NOTE | 2018-09-13 15:54 | Internal Med Progress Note ---
Hospitalist Progress Note - Encounter Date of Encounter: 09/13/18 Time of Encounter: 15:52 - Subjective Interval History: I evaluated patient earlier today. Patient complained of pain in her left flank region. Radiating to her groin. She is also had fever overnight. Nausea has improved. No hematuria. - Exam Vitals: Temp Pulse Resp BP Pulse Ox 100.9 F H 97 15 101/67 94 09/13/18 14:09 09/13/18 14:09 09/13/18 14:09 09/13/18 14:09 09/13/18 14:09 Exam: General: Patient is alert, morbidly obese, mild distress, oriented x 3 ENT: Mucous membranes moist Respiratory: Good respiratory effort. Normal breath sounds. No wheezing or crackles. Cardiovascular: Regular rate and rhythm. s1 and s2 normal No clicks, rubs, gallops, or murmurs. No pedal edema Abdomen: Abdomen is soft, nontender. Bowel sounds are present, mild left CVA tenderness Musculoskeletal: Spontaneously moving all extremities Skin: warm, dry, intact. Neuro: Alert oriented x 3 normal cranial nerves, no focal deficits - Assessment and Plan (1) Sepsis Current Visit: Yes Status: Suspected Assessment and Plan: From UTI and ureteral stone. On Rocephin. Culture from the kidney growing yeast species. Will place patient on fluconazole. (2) Left ureteral stone Current Visit: Yes Status: Acute Assessment and Plan: Status post-left ureteral stent placement. Continue supportive care. Pain control. Place patient on pyridium (3) UTI (urinary tract infection) Current Visit: Yes Status: Acute Assessment and Plan: Continue Rocephin for now. We will also place patient on fluconazole as d iscussed above. DVT Prophylaxis: With subcutaneous heparin - Time Spent with Patient Total time spent is greater than 50% in coordination of care (as documented) at patient's floor/unit and/or counseling patient: Internal Medicine: Result - Labs CBC & Chem 7: 09/13/18 08:56 09/12/18 09:21 Labs: Short CBC 09/13/18 Range/Units 08:56 WBC 10.2 (4.3-11.1) K/mcL Hgb 12.7 (11.5-15.4) g/dL Hct 38.2 (35.3-44.9) % Plt Count 193 (140-400) K/mcL Neutrophils # 6.9 (1.6-8.9) K/mcL Consult Discharge Plan - Plan Referrals: Roma Posada, [employer] [Primary Care Provider] - (1) Sepsis Qualifiers: Sepsis type: sepsis due to unspecified organism Qualified Code(s): A41.9 - Sepsis, unspecified organism (3) UTI (urinary tract infection) Qualifiers: Urinary tract infection type: acute cystitis Hematuria presence: with hematuria Qualified Code(s): N30.01 - Acute cystitis with hematuria
[2018-09-13] MEDS: Fluconazole 400 MG/200 ML 400 MG/200 ML BAG IVPB SCH (17:02)
[2018-09-13] MEDS: Acetaminophen 325 MG TABLET PO PRN (18:16)
[2018-09-14] MEDS: Acetaminophen 325 MG TABLET PO PRN ×2 (04:08→14:13)
[2018-09-14] MEDS: OXYCODONE Oral CONC 10 MG/0.5 ML ORAL.SYG SL PRN ×6 (04:59→21:30)
[2018-09-14] MEDS: *HR* Heparin 5,000 UNIT/ML VIAL SQ SCH ×2 (05:05→16:54)
--- NOTE | 2018-09-14 07:15 | Urology Progress Note ---
Date of Encounter: 09/14/18 Time of Encounter: 07:14 - Assessment and Plan (1) Left ureteral stone Current Visit: Yes Status: Acute Assessment and plan: Status post left renal stent placement. Continue IV fluconazole. If she co ntinues to spike fevers, consider ID consultation. I will add on promethazine for nausea. Urology will follow along. (2) UTI (urinary tract infection) Current Visit: Yes Status: Acute Qualifiers: Urinary tract infection type: acute cystitis Hematuria presence: with hematuria Qualified Code(s): N30.01 - Acute cystitis with hematuria Progress Note Narrative: 27-year-old woman status post left ureteral stent placement. She had a fever overnight. Urine culture grew out yeast. She is now on fluconazole. She is still having some nausea. Objective Initial Vital Signs Temp Pulse Resp BP Pulse Ox 99.6 F 117 20 125/79 97 09/10/18 17:37 09/10/18 17:37 09/10/18 17:37 09/10/18 17:37 09/10/18 17:37 - General physical appearance Present: well developed, well nourished, no distress - Respiratory Present: normal respiratory effort - Abdomen Present: soft - Labs 09/13/18 08:56 09/12/18 09:21 Consult Discharge Plan - Plan Referrals: Roma Posada CNP [Primary Care Provider] -
[2018-09-14] MEDS: Nicotine 21 MG PATCH.TD24 TD SCH (07:50)
[2018-09-14] MEDS: cefTRIAXone 1,000 MG in Water for inj. (sterile) 20 ML 10 ML IVP SCH (07:50)
[2018-09-14] MEDS: Fluconazole 400 MG/200 ML 400 MG/200 ML BAG IVPB SCH (07:53)
[2018-09-14] MEDS: Promethazine 12.5 MG in 0.9 % Sodium Chloride 50 ML IVPB PRN ×2 (08:26→20:05)
--- NOTE | 2018-09-14 10:30 | Infectious Disease Consult ---
Date of Encounter: 09/14/18 Time of Encounter: 10:21 Assessment and Plan (1) Sepsis Status: Suspected Assessment and plan: had 3 SIRS criteria on admission secondary to UTI ? no other source identified on PE and ROS Qualifiers: Sepsis type: sepsis due to unspecified organism Qualified Code(s): A41.9 - Sepsis, unspecified organism (2) Left ureteral stone Status: Acute Assessment and plan: recurrent initial stent placed February 12 s/p cystoscopy by Dr. Leonardo on 09/11; urine growing yeast will request ID and susceptibility. if no other source of infection identified, might switch diflucan to micafungin will attempt to repeat urine culture (3) UTI (urinary tract infection) Status: Acute Assessment and plan: preveiously urine culture pansensitive E coli UTI this admission U/A contaminated to no cultures were obtained but urine sent from cystogram and it revealed yeast will request ID and susceptibility patient on rocephin and diflucan and continues to have fever and sepsis picture repeat urine culture continue diflucan for now stop rocephin start zosyn while repeat urine culture finalize CT abdomen/pelvis to rule out abscess etc get blood culture x 2 monitor labs and for drug toxicity Qualifiers: Urinary tract infection type: acute cystitis Hematuria presence: with hematuria Qualified Code(s): N30.01 - Acute cystitis with hematuria (4) Morbid obesity with BMI of 40.0-44.9, adult Status: Acute (5) GERD (gastroesophageal reflux disease) Status: Acute Qualifiers: Esophagitis presence: esophagitis presence not specified Qualified Code(s): K21.9 - Gastro-esophageal reflux disease without esophagitis (6) Depression Status: Acute Qualifiers: Depression Type: unspecified Qualified Code(s): F32.9 - Major depressive d isorder, single episode, unspecified Infectious Disease HPI - Data of Consult Patient: new to practice Consult date: 09/14/18 Requesting Physician: Anil Robert MD Primary Care Provider: Roma Posada CNP - Consult Narrative Reason for consult: Persistent fever, yeast from ureteral sample History of present illness: Ms. Kim is a 27 year old female Patient is a 27-year-old woman who presented to [facility] on 09/10/2018 with abdominal pain secondary to left ureteral stone, we are consulted 09/14/2018 for persistent fever. Patient is a 27-year-old woman with history of morbid obesity BMI 40, depression and kidney stones who in January 2018 underwent left ureteral stent by Dr. Ady tuttle for a left ureteral stone. Patient a few days prior to admission presented to [facility] with left lower quadrant pain and was noted to have a 4.5 mm stone in the left UPJ on CT scan patient was discharged home on oral pain medications but apparently she has been having nausea vomiting poor oral intake and could not keep anything down. Patient's symptoms continued to worsen with left-sided pain and lower back pain that wrapped around to her left lower quadrant. Pain was described as climbing and stabbing. No aggravating factor or alleviating factors noted. Patient also was complaining of burning on urination and dysuria. She said her urine is also cloudy and foul -smelling. Patient decided to come to the ED for evaluation. Since admission, patient has been febrile with a MAXIMUM TEMPERATURE of 102.5 Fahrenheit, tachycardia but no tachypnea. Presenting labs revealed WBC 16.2 with 84% neutrophils no bands, BUN 9, CR 0.74 and lactic acid of 0.9. A urinalysis revealed moderate leukocyte esterase, large blood, many epithelial cells so no culture was sent initially. No blood cultures obtained. Patient underwent cystoscopy and left ureteral stent placement. Left renal aspirate was sent for culture on 09/11/2017 and it revealed yeast species. Patient is currently on ceftriaxone and fluconazole. Continues to have fever. We were asked to evaluate the patient's make further recommendations. Currently, patient denies any URI symptoms. no headache, no sore throat, no sinus pressure. no cough, no chest pain no shortness of breath. No nausea, no v omiting, continues to have urinary symptoms. CC: Anil Robert MD Past Med Surg Social Fam HX - Past Medical History Medical history: kidney stones Additional medical history: Kidney stone Psychiatric history: depression - Past Surgical History Surgical History: cholecystectomy Additional surgical history: Ureters stents - Social History Smoking Status: Current every day smoker Smokeless Tobacco Status: No Alcohol use: none Drug use: none - Family History Mother Hx Family Genitourinary Disorders: No Infectious Disease-CN:Meds FLUoxetine HCl [Fluoxetine HCl] 40 mg PO DAILY 02/12/18 [History] Omeprazole [PriLOSEC] 20 mg PO DAILY 02/12/18 [History] Allergy/AdvReac Type Severity Reaction Status Date / Time No Known Allergies Allergy Verified 02/12/18 07:48 Review of systems: 10 point ROS done, negative other for what's mentioned in the HPI Exam - Constitutional Vitals: Temp Pulse Resp BP Pulse Ox 98.6 F 67 15 105/73 92 09/14/18 06:45 09/14/18 06:45 09/14/18 06:45 09/14/18 06:45 09/14/18 06:45 General appearance: febrile, cooperative, no acute distress - Head Head exam: Present: atraumatic, normocephalic - Eye Eye exam: Present: EOMI, PERRL, sclera anicteric - ENT ENT exam: Present: mucous membranes dry, normal exam - Neck Neck exam: Present: full ROM. Absent: meningismus - Respiratory Respiratory exam: Present: CTAB. Absent: wheezes - Cardiovascular Cardiovascular exam: Present: RRR, +S1, +S2 - GI/Abdominal GI/Abdominal exam: Present: soft. Absent: tenderness Additional comments: no epigastric tenderness. negative gr's sign - Extremities Exam Extremities exam: Present: full ROM. Absent: pedal edema - Back Exam Back exam: Present: CVA tenderness (L), normal inspection. Absent: CVA tenderness (R), vertebral tenderness - Neurological Exam Neurological exam: Present: alert, oriented X3 - Psychiatric Psychiatric exam: Present: normal affect, normal mood - Skin Skin exam: Present: normal color. Absent: rash Infectious Disease CN: Results - Labs CBC & Chem 7: 09/13/18 08:56 09/12/18 09:21 Cultures: Cultures 09/11/18 09:20 Urine Culture - Preliminary Urine,Kidney Yeast Species 09/11/18 07:40 Urine Culture - Final Urine,Clean Catch No growth. Serology: Serology 09/10/18 09/10/18 Range/Units 17:35 17:35 Urine Color Yellow (Yellow) Urine Clarity Cloudy A (Clear) Urine pH 6.0 (5.0-8.0) pH Units Ur Specific [place] 1.019 (1.010-1.025) Urine Protein 100 H (Neg-Trace) mg/dL Urine Glucose (UA) Normal (Normal) mg/dL Urine Ketones Negative (Negative) mg/dL Urine Blood Large H (Negative) Urine Nitrite Negative (Negative) Urine Bilirubin Negative (Negative) Urine Urobilinogen Normal (Normal) mg/dL Ur Leukocyte Esterase Moderate H (Negative) Urine Microscopic RBC 50-100 H (0-3) per hpf Urine Microscopic WBC TNTC H (0-3) per hpf Ur Squamous Epith Cells Many H (None-Few) per lpf Urine Bacteria Moderate H (None-Few) per hpf Hyaline Casts Few (None-Few) per lpf Ur Culture Indicated? NO. A (NO) Urine Test Negative (Negative) Consult Discharge Plan - Plan Referrals: Roma Posada, GENERAL LABOR [Primary Care Provider] -
--- NOTE | 2018-09-14 13:27 | Internal Med Progress Note ---
Hospitalist Progress Note - Encounter Date of Encounter: 09/14/18 Time of Encounter: 09:00 - Subjective Interval History: Patient continues to have left flank pain. Dysuria improved with him. DM. She also had fever again overnight with MAXIMUM TEMPERATURE of 102.5. It has improved since then. She does have some nausea. No chills or rigors. - Exam Vitals: Temp Pulse Resp BP Pulse Ox 99.3 F 78 15 109/76 96 09/14/18 11:03 09/14/18 11:03 09/14/18 11:03 09/14/18 11:03 09/14/18 11:03 Exam: General: Patient is alert, mild distress, oriented x 3, morbidly obese ENT: Mucous membranes moist Respiratory: Good respiratory effort. Normal breath sounds. No wheezing or crackles. Cardiovascular: Regular rate and rhythm. s1 and s2 normal No clicks, rubs, gall ops, or murmurs. No pedal edema Abdomen: Abdomen is soft, nontender. Bowel sounds are present, left CVA tenderness Musculoskeletal: Spontaneously moving all extremities Skin: warm, dry, intact. Neuro: Alert oriented x 3 normal cranial nerves, no focal deficits - Assessment and Plan (1) Sepsis Current Visit: Yes Status: Suspected Assessment and Plan: Due to urinary tract infection and left ureteral stone. Urine culture from left renal aspirate growing species. Patient continues to have fevers although her WBC count is normal. On fluconazole and ceftriaxone. Consulted infectious d isease for recommendations. Moderate risk for complications. (2) Left ureteral stone Current Visit: Yes Status: Acute Assessment and Plan: Status post cystoscopy and left ureteral stent placement. Continue supportive care and pain control. (3) UTI (urinary tract infection) Current Visit: Yes Status: Acute Assessment and Plan: Management as above. Patient on Rocephin and fluconazole. DVT Prophylaxis: With subcutaneous heparin - Time Spent with Patient Total time spent is greater than 50% in coordination of care (as documented) at patient's floor/unit and/or counseling patient: Internal Medicine: Result - Labs CBC & Chem 7: 09/13/18 08:56 09/12/18 09:21 Consult Discharge Plan - Plan Referrals: Roma Posada, [employer] [Primary Care Provider] - (1) Sepsis Qualifiers: Sepsis type: sepsis due to unspecified organism Qualified Code(s): A41.9 - Sepsis, unspecified organism (3) UTI (urinary tract infection) Qualifiers: Urinary tract infection type: acute cystitis Hematuria presence: with hematuria Qualified Code(s): N30.01 - Acute cystitis with hematuria
[2018-09-14] MEDS: Ondansetron 4 MG/2 ML VIAL IVP PRN (18:55)
[2018-09-14] MEDS ORDERED: Isovue-370 500 ML INFUS..BTL IV ONE (19:47)
[2018-09-14] MEDS: Piperacillin/Tazobactam 3.375 GM in 0.9 % Sodium Chloride Mini Bag 100 ML IVPB SCH (21:31)
[2018-09-15] MEDS: Piperacillin/Tazobactam 3.375 GM in 0.9 % Sodium Chloride Mini Bag 100 ML IVPB SCH ×3 (04:06→19:53)
[2018-09-15] MEDS: OXYCODONE Oral CONC 10 MG/0.5 ML ORAL.SYG SL PRN ×4 (04:14→18:19)
[2018-09-15 04:44] LABS: Bilirubin,Urine Negative (Negative); Blood,Urine Large (Negative); Clarity,Urine Cloudy (Clear); Color,Urine Orange (Yellow); Glucose,Urine (UA) Normal (Normal); Ketones,Urine Negative (Negative); Leukocyte Esterase,Urine Moderate (Negative); Nitrite,Urine Positive (Negative); Protein,Urine 30 mg/dL (Neg-Trace); Specific Gravity,Urine 1.014 (1.010-1.025)
[2018-09-15 04:45] LABS: Bacteria,Urine None Seen per hpf (None-Few); Hyaline Casts,Urine None Seen per lpf (None-Few); RBC,Urine TNTC per hpf (0-3); Squamous Epithelial Cell,Urine Many per lpf (None-Few); WBC,Urine 15-30 per hpf (0-3)
[2018-09-15] MEDS: *HR* Heparin 5,000 UNIT/ML VIAL SQ SCH ×2 (05:10→16:38)
[2018-09-15] MEDS: Nicotine 21 MG PATCH.TD24 TD SCH (08:14)
[2018-09-15] MEDS: Fluconazole 400 MG/200 ML 400 MG/200 ML BAG IVPB SCH (08:15)
--- NOTE | 2018-09-15 09:06 | Urology Progress Note ---
Addendum entered and electronically signed by Charlie Leonardo MD 09/15/18 09:37: The patient was seen and examined with the physician's assistant news director. I agree with the assessment and plan. Clinically, she says she feels better. She did have a low-grade temperature yesterday, but her temperature is better today. She is growing out Farheen glabrata. The patient will like to be discharged home today. He may be reasonable she seems to be getting clinically better to discharge home on oral fluconazole. We will arrange for a staged ureteroscopic stone extraction. Original Note: Date of Encounter: 09/15/18 Time of Encounter: 07:50 - Assessment and Plan (1) Left ureteral stone Current Visit: Yes Status: Acute Assessment and plan: Patient is a 27-year-old female who presents 4 days postoperatively from a left ureteral stent placement. Vital signs are currently stable and afebrile. Patient sustained a maximum temperature of 100.4 yesterday afternoon, but she is remained afebrile overnight. Patient is receiving IV Rocephin and fluconazole. Urology recommends continued oral antibiotic/antifungal therapy for an additional 10 days after discharge. We will discuss a staged stone extraction procedure as an outpatient. (2) UTI (urinary tract infection) Current Visit: Yes Status: Acute Assessment and plan: Patient is a 27-year-old female who presents with an ascending urinary tract infection. Urine culture is positive for farheen glabrata, and patient is receiving IV fluconazole. Final blood cultures are pending. Patient has shown improvement. Vital signs are currently stable and afebrile. Appreciate infectious disease recommendations. Qualifiers: Urinary tract infection type: acute cystitis Hematuria presence: with hematuria Qualified Code(s): N30.01 - Acute cystitis with hematuria Progress Note Subjective: no new complaints, feels better Narrative: POD #4. Patient seen and examined sitting upright in bed in no apparent distress. Nurse at bedside. Patient reports feeling much better. Patient states flank pain is much improved, and she denies any gross hematuria, dysuria, incontinence. Currently, patient denies any fever or chills. Patient states she felt slightly chilled overnight. Objective Initial Vital Signs Temp Pulse Resp BP Pulse Ox 99.6 F 117 20 125/79 97 09/10/18 17:37 09/10/18 17:37 09/10/18 17:37 09/10/18 17:37 09/10/18 17:37 - General physical appearance Present: well developed, no distress, no pain - Respiratory Present: normal expansion, normal respiratory effort - Abdomen Present: soft, non tender - Integumentary Present: no rash, no abnormal pigmentation - Musculoskeletal Present: normal posture - Psychiatric Present: oriented to time, oriented to person, oriented to place, speech is normal, memory intact - Labs 09/13/18 08:56 09/12/18 09:21 Consult Discharge Plan - Plan Referrals: Roma Posada, [employer]PER [Primary Care Provider] -
--- NOTE | 2018-09-15 10:58 | Infectious Disease Progress No ---
Date of Encounter: 09/15/18 Time of Encounter: 10:56 - Assessment and Plan (1) Sepsis Current Visit: Yes Status: Suspected The patient had 3 sepsis criteria on admission. Likely secondary to UTI. Improved. Tachycardia and leukocytosis have resolved. She continues to have intermittent low-grade fevers with a MAXIMUM TEMPERATURE of 100.4 overnight. Blood cultures drawn 09/14/18 are pending 2 sets. Recommendations: Request susceptibilities on the Farheen glabrata found on the Intra-Op urine specimen. Send urine specimen for culture. Unable to run culture on the specimen submitted this morning due to many epithelial cells on the urinalysis. Spoke with nursing and asked them to assist the patient to ensure adequate specimen collection. Await blood cultures finalized. Continue Zosyn 3.375 g IV every 8 hours. Continue fluconazole 400 mg IV daily. Duration treatment depends on the clinical picture. Monitor renal and liver function and dose adjust antibiotics. Qualifiers: Sepsis type: sepsis due to unspecified organism Qualified Code(s): A41.9 - Sepsis, unspecified organism (2) UTI (urinary tract infection) Current Visit: Yes Status: Acute Likely secondary to obstructing stone. Complicated. Causative organism: Unclear. Intraoperative urine culture grew out Farheen glabrata. Previous urine culture in August grew out pansensitive Escherichia coli. Urinalysis obtained in the emergency department appeared contaminated. Urine culture was negative. Repeat urinalysis this morning again appears contaminated. CT of the abdomen and pelvis completed 09/14/18 shows features of an ascending urinary tract infection on the left with focal pyelonephritis near the inferior pole. Asymmetric left perinephric inflammatory stranding without evidence of perinephric abscess or drainable fluid collection. Currently on Zosyn and fluconazole. Qualifiers: Urinary tract infection type: acute pyelonephritis Qualified Code(s): N10 - Acute pyelonephritis (3) Left ureteral stone Current Visit: Yes Status: Acute CT of the abdomen and pelvis completed at outside hospital showed a 4.5 mm stone at the left UPJ. Status post cystoscopy with left ureteral stent placement 09/11/18. Urology consulted and following. (4) Morbid obesity with BMI of 40.0-44.9, adult Current Visit: Yes Status: Acute (5) GERD (gastroesophageal reflux disease) Current Visit: Yes Status: Acute Qualifiers: Esophagitis presence: esophagitis presence not specified Qualified Code(s): K21.9 - Gastro-esophageal reflux disease without esophagitis (6) Depression Current Visit: Yes Status: Acute Qualifiers: Depression Type: unspecified Qualified Code(s): F32.9 - Major depressive disorder, single episode, unspecified - Subjective Interval history: Patient seen and examined. No acute events noted overnight. Patient states she feels much better today. Denies any subjective fevers or chills, but MAXIMUM TEMPERATURE of 100.4 documented yesterday afternoon. She denies chest pain, shortness of breath, or cough. She denies nausea or vomiting, but states she does not have much of an appetite. She complains of diffuse abdominal pain and some intermittent left flank pain that is improved with pain medication. She reports dysuria, but denies any urinary frequency. She denies any oral thrush or any skin lesions. Infect Dis PN-Objective Data - Labs CBC & Chem 7: 09/16/18 05:35 09/16/18 05:35 Labs: Laboratory Results - last 24 hr 09/15/18 04:23 Urine Color [place] A Urine Clarity Cloudy A Urine pH 6.0 Ur Specific [place] 1.014 Urine Protein 30 H Urine Glucose (UA) Normal Urine Ketones Negative Urine Blood Large H Urine Nitrite Positive A Urine Bilirubin Negative Urine Urobilinogen 2.0 H Ur Leukocyte Esterase Moderate H Urine Microscopic RBC TNTC H Urine Microscopic WBC 15-30 H Ur Squamous Epith Cells Many H Urine Bacteria None Seen Hyaline Casts None Seen Ur Culture Indicated? NO. A Cultures: Cultures 09/11/18 09:20 Urine Culture - Final Urine,Kidney Farheen glabrata 09/14/18 20:34 Blood Culture - Preliminary Peripheral Venipuncture Culture is incubating and being continuously monit ored for growth. Final report to follow. 09/14/18 20:34 Blood Culture - Preliminary Peripheral Venipuncture Culture is incubating and being continuously monitored for growth. Final report to follow. 09/11/18 07:40 Urine Culture - Final Urine,Clean Catch No growth. Serology 09/15/18 09/10/18 09/10/18 Range/Units 04:23 17:35 17:35 Urine Color [place] A Yellow (Yellow) Urine Clarity Cloudy A Cloudy A (Clear) Urine pH 6.0 6.0 (5.0-8.0) pH Units Ur Specific [place] 1.014 1.019 (1.010-1.025) Urine Protein 30 H 100 H (Neg-Trace) mg/dL Urine Glucose (UA) Normal Normal (Normal) mg/dL Urine Ketones Negative Negative (Negative) mg/dL Urine Blood Large H Large H (Negative) Urine Nitrite Positive A Negative (Negative) Urine Bilirubin Negative Negative (Negative) Urine Urobilinogen 2.0 H Normal (Normal) mg/dL Ur Leukocyte Esterase Moderate H Moderate H (Negative) Urine Microscopic RBC TNTC H 50-100 H (0-3) per hpf Urine Microscopic WBC 15-30 H TNTC H (0-3) per hpf Ur Squamous Epith Cells Many H Many H (None-Few) per lpf Urine Bacteria None Seen Moderate H (None-Few) per hpf Hyaline Casts None Seen Few (None-Few) per lpf Ur Culture Indicated? NO. A NO. A (NO) Urine Test Negative (Negative) - Impressions Impressions Abdomen/Pelvis CT 09/14/18 19:47 IMPRESSION: Features of an ascending urinary tract infection on the left with focal pyelonephritis near the inferior pole. Asymmetric left perinephric inflammatory stranding without evidence of a perinephric abscess or drainable fluid collection. Interval placement of a double-J left nephroureteral stent and removal of obstructing left UPJ stone. Mild residual left pelvocaliectasis and inferior pole nonobstructive nephrolithiasis. D/ / Chuckie Lamb / Chuckie Lamb Interpreting Provider: Chuckie Lamb Exam - Constitutional Vitals: Temp Pulse Resp BP Pulse Ox 98.2 F 81 14 102/71 90 09/15/18 06:29 09/15/18 06:29 09/15/18 06:29 09/15/18 06:29 09/15/18 06:29 General appearance: cooperative, no acute distress, obese - Head Head exam: Present: atraumatic, normal inspection, normocephalic - Eye Eye exam: Present: EOMI, normal appearance, PERRL Pupils: Present: normal accommodation - ENT ENT exam: Present: mucous membranes moist - Neck Neck exam: Present: normal inspection - Respiratory Respiratory exam: Present: CTAB. Absent: rales, respiratory distress, rhonchi, wheezes - Cardiovascular Cardiovascular exam: Present: RRR, +S1, +S2 - GI/Abdominal GI/Abdominal exam: Present: distended (obese), normal bowel sounds, soft, tenderness (generalized) - Extremities Exam Extremities exam: Present: normal inspection. Absent: joint swelling, pedal edema, tenderness - Back Exam Back exam: Absent: CVA tenderness (L), CVA tenderness (R) - Neurological Exam Neurological exam: Present: alert, oriented X3, no focal deficits - Psychiatric Psychiatric exam: Present: normal affect, normal mood - Skin Skin exam: Present: dry, intact, normal color, warm Consult Discharge Plan - Plan Referrals: Roma Posada, [employer] APPLICATOR [Primary Care Provider] -
[2018-09-15] MEDS: Ondansetron 4 MG/2 ML VIAL IVP PRN (14:08)
[2018-09-15] MEDS: Ketorolac 15 MG/ML VIAL IVP PRN (15:39)
--- NOTE | 2018-09-15 15:50 | Internal Med Progress Note ---
Hospitalist Progress Note - Encounter Date of Encounter: 09/15/18 Time of Encounter: 09:30 - Subjective Interval History: Patient was feeling much better today. She reports that she is able to tolerate diet well and wishes to go home. Denies any fevers or chills. She reported that the pain is well controlled. Her last reported fever was 100.4 at 2 PM yesterday afternoon. Since then she has been afebrile - Exam Vitals: Temp Pulse Resp BP Pulse Ox 98.4 F 75 16 111/74 93 09/15/18 14:58 09/15/18 14:58 09/15/18 14:58 09/15/18 14:58 09/15/18 14:58 Exam: General: Patient is alert, no acute distress, oriented x 3, morbidly obese ENT: Mucous membranes moist Respiratory: Good respiratory effort. Normal breath sounds. No wheezing or crackles. Cardiovascular: Regular rate and rhythm. s1 and s2 normal No clicks, rubs, gallops, or murmurs. No pedal edema Abdomen: Abdomen is soft, mild CVA tenderness. Bowel sounds are present Musculoskeletal: Spontaneously moving all extremities Skin: warm, dry, intact. Neuro: Alert oriented x 3 normal cranial nerves, no focal deficits - Assessment and Plan (1) Sepsis Current Visit: Yes Status: Suspected Assessment and Plan: Sepsis resolving. Patient is doing better overall. No fever or chills reported overnight. (2) Left ureteral stone Current Visit: Yes Status: Acute Assessment and Plan: Status post left ureteral stent placement. (3) UTI (urinary tract infection) Current Visit: Yes Status: Acute Assessment and Plan: Left kidney aspirate is growing Farheen glabrata. Discussed with infectious disease. Patient has been placed on Zosyn yesterday and is continuing fluconazole. Another urine sample has been sent for culture. At this time, infectious disease recommends continuing to treat the patient in the hospital while we await culture results. DVT Prophylaxis: Continue subcutaneous heparin - Time Spent with Patient Total time spent is greater than 50% in coordination of care (as documented) at patient's floor/unit and/or counseling patient: Internal Medicine: Result - Labs CBC & Chem 7: 09/13/18 08:56 09/12/18 09:21 Labs: Urine 09/15/18 Range/Units 04:23 Urine Color [place] A (Yellow) Urine Clarity Cloudy A (Clear) Urine pH 6.0 (5.0-8.0) pH Units Ur Specific [place] 1.014 (1.010-1.025) Urine Protein 30 H (Neg-Trace) mg/dL Urine Glucose (UA) Normal (Normal) mg/dL - Impressions Impressions Abdomen/Pelvis CT 09/14/18 19:47 IMPRESSION: Features of an ascending urinary tract infection on the left with focal pyelonephritis near the inferior pole. Asymmetric left perinephric inflammatory stranding without evidence of a perinephric abscess or drainable fluid collection. Interval placement of a double-J left nephroureteral stent and removal of obstructing left UPJ stone. Mild residual left pelvocaliectasis and inferior pole nonobstructive nephrolithiasis. D/ / Chuckie Lamb / Chuckie Lamb Interpreting Provider: Chuckie Lamb Consult Discharge Plan - Plan Referrals: Roma Posada, OBSTETRICIAN AND GYNAECOLOGIST [Primary Care Provider] - (1) Sepsis Qualifiers: Sepsis type: sepsis due to unspecified organism Qualified Code(s): A41.9 - Sepsis, unspecified organism (3) UTI (urinary tract infection) Qualifiers: Urinary tract infection type: acute pyelonephritis Qualified Code(s): N10 - Acute pyelonephritis
[2018-09-15] MEDS: Acetaminophen 325 MG TABLET PO PRN ×2 (16:37→23:14)
[2018-09-15] MEDS: *HR* Promethazine 25 MG/ML VIAL IVP PRN (16:37)
[2018-09-16] MEDS: OXYCODONE Oral CONC 10 MG/0.5 ML ORAL.SYG SL PRN ×5 (00:30→20:09)
[2018-09-16] MEDS: Piperacillin/Tazobactam 3.375 GM in 0.9 % Sodium Chloride Mini Bag 100 ML IVPB SCH ×3 (03:26→20:10)
[2018-09-16] MEDS: Ondansetron 4 MG/2 ML VIAL IVP PRN (04:44)
[2018-09-16 05:45] LABS: Basophils # 0.1 K/mcL (0.0-0.2); Basophils % 0.6 %; Eosinophils # 0.5 K/mcL (0.0-0.6); Hematocrit 38.1 % (35.3-44.9); Hemoglobin 12.3 g/dL (11.5-15.4); Immature Granulocytes % 0.8 % (0-4); Lymphocytes # 2.2 K/mcL (0.6-4.6); Mean Corpuscular HGB Conc 32.3 g/dL (31.6-35.5); Mean Corpuscular Hemoglobin 29.6 pg (28.0-33.3); Mean Corpuscular Volume 91.6 fL (83.0-100.0); Mean Platelet Volume 10.3 fL (9.4-12.4); Monocytes # 0.7 K/mcL (0.0-1.3); Monocytes % 7.1 %; Neutrophils # 6.2 K/mcL (1.6-8.9); Platelet Count 252 K/mcL (140-400); Red Blood Count 4.16 M/mcL (3.82-4.97); Red Cell Distribution Width 12.4 % (11.5-14.5); Segmented Neutrophils % 63.5 %
[2018-09-16 06:04] LABS: BUN/Creatinine Ratio 13 (6-26); Blood Urea Nitrogen 8 mg/dL (6-20); Carbon Dioxide 30 mEq/L (23-29); Chloride 102 mEq/L (98-107); Glucose 94 mg/dL (70-105); Osmolality,Calculated 290 (280-300); Potassium 3.6 mEq/L (3.5-5.1); Sodium 141 mEq/L (136-145); eGFR For Non-African Americans > 60 (> 60)
[2018-09-16 06:07] LABS: Platelet Estimate Normal (Normal); Reactive Lymphocytes Present (Not Present)
[2018-09-16] MEDS: *HR* Heparin 5,000 UNIT/ML VIAL SQ SCH ×2 (06:17→17:53)
[2018-09-16] MEDS: Nicotine 21 MG PATCH.TD24 TD SCH (08:38)
[2018-09-16] MEDS: Fluconazole 400 MG/200 ML 400 MG/200 ML BAG IVPB SCH (08:38)
[2018-09-16] MEDS: *HR* Promethazine 25 MG/ML VIAL IVP PRN (09:51)
--- NOTE | 2018-09-16 10:18 | Urology Progress Note ---
Date of Encounter: 09/16/18 Time of Encounter: 08:15 - Assessment and Plan (1) Left ureteral stone Current Visit: Yes Status: Acute Assessment and plan: Patient is a 27-year-old female who is 5 days status post cystoscopy and left ureteral stent placement. Discussed postoperative expectations with ureteral stent. Patient is aware she will require a staged stone extraction procedure and plans to follow-up with Dr. Leonardo within 1 week of discharge. (2) UTI (urinary tract infection) Current Visit: Yes Status: Acute Assessment and plan: Patient is a 27-year-old female who presents with septic urinary tract infection. Vital signs remain stable and afebrile. White blood cell count remains reassuring. Patient is receiving fluconazole for daniel glabrata. Plan to continue 10+ day oral regimen per ID recommendations. Qualifiers: Urinary tract infection type: acute pyelonephritis Qualified Code(s): N10 - Acute pyelonephritis Progress Note Subjective: no new complaints, feels better Narrative: POD# 5. Patient seen and examined sitting upright in bed in no apparent distress. Patient states she is feeling much better and denies any flank pain, fever or chills. Patient states she experiences slight discomfort with voiding, but this is also improved. Patient denies any gross hematuria or incontinence. Objective Initial Vital Signs Temp Pulse Resp BP Pulse Ox 99.6 F 117 20 125/79 97 09/10/18 17:37 09/10/18 17:37 09/10/18 17:37 09/10/18 17:37 09/10/18 17:37 - General physical appearance Present: well developed, no distress, no pain - Respiratory Present: normal expansion, normal respiratory effort - Abdomen Present: soft, non tender - Integumentary Present: no rash, no abnormal pigmentation - Musculoskeletal Present: normal posture - Psychiatric Present: oriented to time, oriented to person, oriented to place, speech is normal, memory intact - Labs 09/16/18 05:35 09/16/18 05:35 Diabetes panel 09/16/18 Range/Units 05:35 Sodium 141 (136-145) mEq/L Potassium 3.6 (3.5-5.1) mEq/L Chloride 102 (98-107) mEq/L Carbon Dioxide 30 H (23-29) mEq/L BUN 8 (6-20) mg/dL Creatinine 0.60 (0.60-1.20) mg/dL Glucose 94 (70-105) mg/dL Calcium 9.0 (8.6-10.3) mg/dL Calcium panel 09/16/18 Range/Units 05:35 Calcium 9.0 (8.6-10.3) mg/dL Pituitary panel 09/16/18 Range/Units 05:35 Sodium 141 (136-145) mEq/L Potassium 3.6 (3.5-5.1) mEq/L Chloride 102 (98-107) mEq/L Carbon Dioxide 30 H (23-29) mEq/L BUN 8 (6-20) mg/dL Creatinine 0.60 (0.60-1.20) mg/dL Glucose 94 (70-105) mg/dL Calcium 9.0 (8.6-10.3) mg/dL Adrenal panel 09/16/18 Range/Units 05:35 Sodium 141 (136-145) mEq/L Potassium 3.6 (3.5-5.1) mEq/L Chloride 102 (98-107) mEq/L Carbon Dioxide 30 H (23-29) mEq/L BUN 8 (6-20) mg/dL Creatinine 0.60 (0.60-1.20) mg/dL Glucose 94 (70-105) mg/dL Calcium 9.0 (8.6-10.3) mg/dL Consult Discharge Plan - Plan Referrals: Roma Posada, MARIAA [Primary Care Provider] -
--- NOTE | 2018-09-16 11:14 | Infectious Disease Progress No ---
Date of Encounter: 09/16/18 Time of Encounter: 11:12 - Assessment and Plan (1) Sepsis Status: Resolved The patient had 3 sepsis criteria on admission. Likely secondary to UTI. Resolved. Tachycardia and leukocytosis have resolved. Afebrile overnight. Blood cultures drawn 09/14/18 are NGTD 2 sets. Recommendations: Await blood cultures finalized. Continue Zosyn 3.375 g IV every 8 hours. Continue fluconazole, but decrease to 200mg IV daily. Duration treatment depends on the clinical picture. Can transition to Augmentin 875mg PO BID and fluconazole 200mg PO daily to complete a 14 day course of treatment. Monitor renal and liver function and dose adjust antibiotics. Qualifiers: Sepsis type: Farheen Qualified Code(s): B37.7 - Candidal sepsis (2) UTI (urinary tract infection) Status: Acute Likely secondary to obstructing stone. Complicated. Causative organism: Unclear. Intraoperative urine culture grew out Farheen glabrata. Previous urine culture in August grew out pansensitive Escherichia coli. Urinalysis obtained in the emergency department appeared contaminated. Urine culture was negative. Repeat urinalysis appears contaminated. CT of the abdomen and pelvis completed 09/14/18 shows features of an ascending urinary tract infection on the left with focal pyelonephritis near the inferior pole. Asymmetric left perinephric inflammatory stranding without evidence of perinephric abscess or drainable fluid collection. Repeat urine culture negative. Currently on Zosyn and fluconazole. Qualifiers: Urinary tract infection type: acute pyelonephritis Qualified Code(s): N10 - Acute pyelonephritis (3) Left ureteral stone Status: Acute CT of the abdomen and pelvis completed at outside hospital showed a 4.5 mm stone at the left UPJ. Status post cystoscopy with left ureteral stent placement 09/11/18. Urology consulted and following. (4) Morbid obesity with BMI of 40.0-44.9, adult Status: Acute (5) GERD (gastroesophageal reflux disease) Status: Chronic Qualifiers: Esophagitis presence: esophagitis presence not specified Qualified Code(s): K21.9 - Gastro-esophageal reflux disease without esophagitis (6) Depression Status: Chronic Qualifiers: Depression Type: unspecified Qualified Code(s): F32.9 - Major depressive disorder, single episode, unspecified - Subjective Interval history: Patient seen and examined. No acute events noted overnight. Patient states she feels much better today. Denies any subjective fevers or chills. She denies chest pain, shortness of breath, or cough. She denies nausea or vomiting and states her appetite is better. She complains of diffuse abdominal pain and some intermittent left flank pain that is improved with pain medication. She reports dysuria, but denies any urinary frequency or hematuria. She denies any oral thrush or any skin lesions. Infect Dis PN-Objective Data - Labs CBC & Chem 7: 09/16/18 05:35 09/16/18 05:35 Labs: Laboratory Results - last 24 hr 09/16/18 09/16/18 05:35 05:35 WBC 9.7 RBC 4.16 Hgb 12.3 Hct 38.1 MCV 91.6 MCH 29.6 MCHC 32.3 RDW 12.4 Plt Count 252 MPV 10.3 Immature Gran % 0.8 Seg Neutrophils % 63.5 Lymphocytes % 23.0 Monocytes % 7.1 Eosinophils % 5.0 Basophils % 0.6 Neutrophils # 6.2 Lymphocytes # 2.2 Monocytes # 0.7 Eosinophils # 0.5 Basophils # 0.1 Reactive Lymphocytes Present A Platelet Estimate Normal Sodium 141 Potassium 3.6 Chloride 102 Carbon Dioxide 30 H BUN 8 Creatinine 0.60 Est GFR ( Amer) > 60 Est GFR (Non-Af Amer) > 60 BUN/Creatinine Ratio 13 Glucose 94 Calculated Osmolality 290 Calcium 9.0 Cultures: Cultures 09/11/18 09:20 Urine Culture - Final Urine,Kidney Farheen glabrata 09/14/18 20:34 Blood Culture - Preliminary Peripheral Venipuncture Culture is incubating and being continuously monitored for growth. Final report to follow. 09/14/18 20:34 Blood Culture - Preliminary Peripheral Venipuncture Culture is incubating and being continuously monitored for growth. Final report to follow. 09/11/18 07:40 Urine Culture - Final Urine,Clean Catch No growth. Serology 09/15/18 09/10/18 09/10/18 Range/Units 04:23 17:35 17:35 Urine Color [place] A Yellow (Yellow) Urine Clarity Cloudy A Cloudy A (Clear) Urine pH 6.0 6.0 (5.0-8.0) pH Units Ur Specific [place] 1.014 1.019 (1.010-1.025) Urine Protein 30 H 100 H (Neg-Trace) mg/dL Urine Glucose (UA) Normal Normal (Normal) mg/dL Urine Ketones Negative Negative (Negative) mg/dL Urine Blood Large H Large H (Negative) Urine Nitrite Positive A Negative (Negative) Urine Bilirubin Negative Negative (Negative) Urine Urobilinogen 2.0 H Normal (Normal) mg/dL Ur Leukocyte Esterase Moderate H Moderate H (Negative) Urine Microscopic RBC TNTC H 50-100 H (0-3) per hpf Urine Microscopic WBC 15-30 H TNTC H (0-3) per hpf Ur Squamous Epith Cells Many H Many H (None-Few) per lpf Urine Bacteria None Seen Moderate H (None-Few) per hpf Hyaline Casts None Seen Few (None-Few) per lpf Ur Culture Indicated? NO. A NO. A (NO) Urine Test Negative (Negative) Exam - Constitutional Vitals: Temp Pulse Resp BP Pulse Ox 98.8 F 91 16 106/67 98 09/16/18 10:50 09/16/18 10:50 09/16/18 10:50 09/16/18 10:50 09/16/18 10:50 General appearance: cooperative, no acute distress, obese - Head Head exam: Present: atraumatic, normal inspection, normocephalic - Eye Eye exam: Present: EOMI, normal appearance, PERRL Pupils: Present: normal accommodation - ENT ENT exam: Present: mucous membranes moist - Neck Neck exam: Present: normal inspection - Respiratory Respiratory exam: Present: CTAB. Absent: rales, respiratory distress, rhonchi, wheezes - Cardiovascular Cardiovascular exam: Present: RRR, +S1, +S2 - GI/Abdominal GI/Abdominal exam: Present: distended (obese), normal bowel sounds, soft, tenderness (generalized, improved.) - Extremities Exam Extremities exam: Present: normal inspection. Absent: joint swelling, pedal edema, tenderness - Back Exam Back exam: Absent: CVA tenderness (L), CVA tenderness (R) - Neurological Exam Neurological exam: Present: alert, oriented X3, no focal deficits - Psychiatric Psychiatric exam: Present: normal affect, normal mood - Skin Skin exam: Present: dry, intact, normal color, warm Consult Discharge Plan - Plan Additional Instructions: Please follow-up with your primary care physician and urologist in 1 week. Please take your antibiotic until completed. Please resume your home medications. Please return for any new or worsening symptoms. Referrals: Posada,Roma M, MORTGAGE MANAGER [Primary Care Provider] - (1 week) Charlie Leonardo MD [Partnered Physician] - 09/24/18 8:15 am (1 week) Prescriptions: Amoxicillin/Clavulanate [Augmentin] 875 mg PO BIDWM #10 tablet RX: Fluconazole [Diflucan] 200 mg PO DAILY #9 tab Oxycodone HCl/Acetaminophen [Percocet 5-325 mg Tablet] 1 each PO Q6H PRN 4 Days #15 tablet PRN Reason: Severe Pain Phenazopyridine HCl [Pyridium] 200 mg PO TIDAC PRN #12 tab PRN Reason: bladder spasm - Attending Attestation I examined this patient and my medical decision-making was reviewed with the Resident Physician. I agree with the documented findings, disposition and treatment plan as described except to the extent set forth below.
--- NOTE | 2018-09-16 13:27 | Internal Med Progress Note ---
Hospitalist Progress Note - Encounter Date of Encounter: 09/16/18 Time of Encounter: 13:24 - Subjective Interval History: Patient seen and examined at bedside. Patient states she feels better. She feels like she has some discomfort related to the stent placement she has had this previously that she feels like her dysuria and flank plan has improved. Denies fever, chills, abdominal pain, nausea, vomiting. - Exam Vitals: Temp Pulse Resp BP Pulse Ox 98.8 F 91 16 106/67 98 09/16/18 10:50 09/16/18 10:50 09/16/18 10:50 09/16/18 10:50 09/16/18 10:50 Exam: Gen.: Alert and oriented 3, resting comfortably in bed Lungs: clear to auscultation bilaterally Heart: Regular rate and rhythm, no murmurs, rubs, gallops Abdomen: Soft, nontender, nondistended. Normoactive bowel sounds. - Assessment and Plan (1) Sepsis Current Visit: Yes Status: Resolved Assessment and Plan: Resolved at this time. Secondary to pyelonephritis in the setting of kidney stone has been treated surgically and currently on antibiotics. Afebrile. (2) Left ureteral stone Current Visit: Yes Status: Acute Assessment and Plan: Postop day 5 with ureteral stent placement secondary to UTI in the setting of kidney stone. Patient reports mild discomfort from the stent otherwise general ly feels improved. Patient will need outpatient follow-up for definitive management of ureteral stone. (3) UTI (urinary tract infection) Current Visit: Yes Status: Acute Assessment and Plan: Pyelonephritis secondary to infected kidney stone. Sepsis has resolved as above. Infectious disease following and appreciate their recommendations. Urine culture positive for Farheen glabrata sensitive to fluconazole. Continue fluconazole and Zosyn for now, de-escalate antibiotics based on ID recommendations. (4) GERD (gastroesophageal reflux disease) Current Visit: Yes Status: Acute Assessment and Plan: Stable. Restart home omeprazole. (5) Depression Current Visit: Yes Status: Acute Assessment and Plan: Stable. Restart home fluoxetine DVT Prophylaxis: Heparin 5000 units subcutaneous twice a day. - Time Spent with Patient Total time spent is greater than 50% in coordination of care (as documented) at patient's floor/unit and/or counseling patient: Internal Medicine: Result - Labs CBC & Chem 7: 09/16/18 05:35 09/16/18 05:35 Labs: Short CBC 09/16/18 Range/Units 05:35 WBC 9.7 (4.3-11.1) K/mcL Hgb 12.3 (11.5-15.4) g/dL Hct 38.1 (35.3-44.9) % Plt Count 252 (140-400) K/mcL Neutrophils # 6.2 (1.6-8.9) K/mcL BMP 09/16/18 05:35 Sodium 141 Potassium 3.6 Chloride 102 Carbon Dioxide 30 H BUN 8 Creatinine 0.60 Glucose 94 Calcium 9.0 Consult Discharge Plan - Plan Referrals: Roma Posada, KNIFE SHARPENER [Primary Care Provider] - (1) Sepsis Qualifiers: Sepsis type: Farheen Qualified Code(s): B37.7 - Candidal sepsis (3) UTI (urinary tract infection) Qualifiers: Urinary tract infection type: acute pyelonephritis Qualified Code(s): N10 - Acute pyelonephritis (4) GERD (gastroesophageal reflux disease) Qualifiers: Esophagitis presence: esophagitis presence not specified Qualified Code(s): K21.9 - Gastro-esophageal reflux disease without esophagitis (5) Depression Qualifiers: Depression Type: unspecified Qualified Code(s): F32.9 - Major depressive disorder, single episode, unspecified
[2018-09-17] MEDS: Ondansetron 4 MG/2 ML VIAL IVP PRN (00:26)
[2018-09-17] MEDS: OXYCODONE Oral CONC 10 MG/0.5 ML ORAL.SYG SL PRN ×2 (00:28→07:48)
[2018-09-17] MEDS: Piperacillin/Tazobactam 3.375 GM in 0.9 % Sodium Chloride Mini Bag 100 ML IVPB SCH (03:56)
[2018-09-17] MEDS: *HR* Heparin 5,000 UNIT/ML VIAL SQ SCH (05:36)
[2018-09-17 07:21] VITALS: BP 121/82
[2018-09-17] MEDS: Nicotine 21 MG PATCH.TD24 TD SCH (07:48)
--- NOTE | 2018-09-17 08:33 | Discharge Summary ---
- NOTES TO OUTPATIENT PROVIDER Notes to Outpatient Provider: Patient will complete a total of 14 days of antibiotics and fluconazole. Patient will need urology follow (should be scheduled) for definitive treatment of kidney stone Orders not resulted at time of discharge: Pending orders 09/14/18 20:34 Culture,Blood [BC] Stat Date of Encounter: 09/17/18 Time of Encounter: 08:30 - Discharge Diagnosis (1) Sepsis Priority: Primary Status: Resolved Qualifiers: Sepsis type: Daniel Qualified Code(s): B37.7 - Candidal sepsis (2) Left ureteral stone Priority: Primary Status: Acute (3) UTI (urinary tract infection) Priority: Primary Status: Acute Qualifiers: Urinary tract infection type: acute pyelonephritis Qualified Code(s): N10 - Acute pyelonephritis (4) GERD (gastroesophageal reflux disease) Priority: Secondary Status: Chronic Qualifiers: Esophagitis presence: esophagitis presence not specified Qualified Code(s): K21.9 - Gastro-esophageal reflux disease without esophagitis (5) Depression Priority: Secondary Status: Chronic Qualifiers: Depression Type: unspecified Qualified Code(s): F32.9 - Major depressive disorder, single episode, unspecified Hospital course: Ms. Kim is a 27 year old female with history of GERD and depression presented with flank pain. On presentation she was noted to have a kidney stone with a UTI and sepsis. She was taken urgently for cystoscopy with stent placement. Patient tolerated this well. She was started on antibiotics, initially Rocephin which was changed to Zosyn and after several days it was noted that her urine culture came back with daniel so therefore she was started on fluconazole. She tolerated these well and was kept until final culture results revealed that Daniel was sensitive to fluconazole. Patient continued to improve and will be discharged home to complete a course of 14 days of fluconazole and Augmentin. She is followed by the urology service who recommended the patient follow-up as an outpatient for definitive treatment of her kidney stone. Patient will be discharged home in stable condition. Discharge discussed with: patient - Time Spent with Patient Total time spent providing and/or coordinating discharge services: - Discharge Medications Prescriptions: Amoxicillin/Clavulanate [Augmentin] 875 mg PO BIDWM #10 tablet Fluconazole [Diflucan] 200 mg PO DAILY #9 tab Home Medications: FLUoxetine HCl [Fluoxetine HCl] 40 mg PO DAILY 06/14/18 [History] Omeprazole [PriLOSEC] 20 mg PO DAILY 02/12/18 [History] Amoxicillin/Clavulanate [Augmentin] 875 mg PO BIDWM #10 tablet 09/17/18 [Rx] Fluconazole [Diflucan] 200 mg PO DAILY #9 tab 09/17/18 [Rx] Allergies/Adverse Reactions: Allergy/AdvReac Type Severity Reaction Status Date / Time No Known Allergies Allergy Verified 02/12/18 07:48 Date of admission: 09/11/18 16:21 Primary care physician: Roma Posada CNP Consults: 09/10/18 23:11 Consult to Urology [CONS] Routine Consulting Provider: Urology Rogers Reason for Consult: 4.5 mm stone @ left UPJ, h/o kidney stones and left ureteral stent January 2018 Call Completed: No 09/14/18 08:42 Consult to Infectious Diseases [CONS] Routine Consulting Provider: Infectious Disease Irais Reason for Consult: Persistent fevers, yeast from ureteral sample Time Notified: 08:43 Call Completed: Yes Discharging clinician: Monty Ramírez Anticipated date of discharge: 09/17/18 - Constitutional Vitals: Temp Pulse Resp BP Pulse Ox 98.6 F 76 16 121/82 93 09/17/18 07:19 09/17/18 07:19 09/17/18 07:19 09/17/18 07:19 09/17/18 07:19 General appearance: Present: A&O X 3, no acute distress Exam: . - Respiratory Respiratory exam: Present: CTAB. Absent: rales, rhonchi, wheezes - Cardiovascular Cardiovascular exam: Present: RRR. Absent: gallop, rubs, systolic murmur - GI/Abdominal GI/Abdominal exam: Present: normal bowel sounds, soft. Absent: distended, tenderness - Patient Status Disposition: Home, Self-Care Condition: Fair Functional capacity at discharge: independent ambulation Overall status at discharge: patient is progressing back to baseline - Discharge Instructions Follow Up With: Roma Posada CNP [Primary Care Provider] - (1 week) Charlie Leonardo MD [Partnered Physician] - (1 week) Additional Instructions: Please follow-up with your primary care physician and urologist in 1 week. Please take your antibiotic until completed. Please resume your home medications. Please return for any new or worsening symptoms. - Diet and Activity Activity: increase activity as tolerated Diet: advance to your usual diet
[2018-09-17] MEDS ORDERED: FLUoxetine 20 MG CAPSULE PO SCH (09:00)
[2018-09-17] MEDS ORDERED: Fluconazole 100 MG TABLET PO SCH (09:00)
[2018-09-17] MEDS ORDERED: Fluconazole 200 MG/100 ML 200 MG/100 ML BAG IVPB SCH (09:00)
== END 2018-09-17 10:10 | disposition home or self-care (01) | DRG 720 ==
LOC: EMEROOARM 17:28 → 3ANU 17:28 → SUATTDRO 09-11 16:21
PROVIDERS: ADMIT Hospitalist; ATTEND Internal Medicine